=== PATIENT | female | born 1955 | race Caucasian/White ===

== ENCOUNTER → 2018-01-09 08:43 | Outpatient (CLI) | payer OTHER, MEDICAID, SELFPAY ==
[2018-01-09 10:06] LABS: Alanine Aminotransferase 20 IU/L (9-52); Albumin 4.2 g/dL (3.5-5.0); Albumin Globulin Ratio 1.4 (1.0-2.8); Alkaline Phosphatase 87 U/L (38-126); Aspartate Aminotransferase 18 IU/L (14-36); BUN Creatinine Ratio 23.3 (6-22); Bilirubin Total 0.5 mg/dL (0.2-1.3); Blood Urea Nitrogen 14 mg/dL (7-17); Calcium 9.4 mg/dL (8.4-10.2); Carbon Dioxide 32 mmol/L (22-32); Chloride 106 mmol/L (98-107); Cholesterol 236 mg/dL (140-199); Estimated Glomerular Filt Rate > 60.0 mL/min (>60); Globulin 3.1 g/dL (1.7-4.1); Glucose 106 mg/dL (80-110); HDL Cholesterol 56 mg/dL (40-60); HEMOLYSIS < 15 (0-50); LDL Cholesterol Calculated 157 mg/dL (<100); Phenytoin / Dilantin 8.6 ug/mL (10-20); Potassium 4.4 mmol/L (3.4-5.1); Sodium 144 mmol/L (137-145); Total Protein 7.3 g/dL (6.3-8.2); Triglycerides 114 mg/dL (35-150)
[2018-01-09 10:41] LABS: Hemoglobin 14.2 g/dL (12.0-16.0); Red Blood Cell Count 4.73 X10^6/uL (4.0-5.2); White Blood Cell Count 5.2 X10^3/uL (4.5-11.0)
[2018-01-09 10:42] LABS: Add Manual Diff / Slide Review NO; Basophils Percent Auto 0.9 % (0-2); Eosinophils Percent Auto 5.7 % (2-4); Hematocrit 41.9 % (36-46); Lymphocytes Percent Auto 28.3 % (25-40); Mean Corpuscular Hemoglobin 30.1 PG (26-34); Mean Corpuscular Volume 88.5 fL (80-100); Monocytes Percent Auto 8.5 % (3-14); Neutrophils Absolute Auto 3000 /uL (3000-5900); Neutrophils Percent Auto 56.6 % (50-75); Platelet Count 213 X10^3/uL (150-400); Red Cell Distribution Width 13.1 % (11.6-14.8)
[2018-01-09 12:41] LABS: Appearance Urine UA CLEAR; Bilirubin Urine UA NEGATIVE (NEGATIVE); Color Urine UA YELLOW; Glucose Urine UA NEGATIVE (Normal); Ketones Urine UA NEGATIVE (NEGATIVE); Leukocyte Esterase Urine UA NEGATIVE (NEGATIVE); Nitrite Urine UA Negative (Negative); Occult Blood Urine UA NEGATIVE (Negative); Protein Urine UA NEGATIVE (Negative); Urobilinogen Urine UA 0.2 E.U./dL (0.2); pH Urine UA 5.5 (4.5-8.0)
== END ==
PROVIDERS: PCP Family Medicine; Visit Provider Family Medicine
DX: I10 Essential (primary) hypertension (principal); E78.5 Hyperlipidemia, unspecified; R56.9 Unspecified convulsions; Z51.81 Encounter for therapeutic drug level monitoring; Z13.29 Encounter for screening for other suspected endocrine disorder
CPT/HCPCS: 36415; 80053; 80061; 80185; 81003; 84443; 85025

== ENCOUNTER 2018-04-02 10:58 | Emergency (ER) | payer OTHER, MEDICAID, SELFPAY ==
[2018-04-02 11:02] VITALS: BP 165/85; PULSE 85; RESP 16; O2SAT 95; BMI 33.0
--- NOTE | 2018-04-02 12:09 | ED.SKABFB ---
HPI - Skin/Abscess/Foreign Bdy General Chief complaint: Skin/Abscess/Foreign Body Stated complaint: BLOCKAGE IN THROAT, CAN'T EAT OR SWALLOW Time Seen by Provider: 04/02/18 12:01 Source: patient Mode of arrival: ambulatory Limitations: no limitations History of Present Illness HPI narrative: Patient is a 62-year-old female who presents something stuck in her esophagus. She is not sure what is it started happening yesterday. She says every time she eats or drinks it comes back up. She is able to swallow her own spit most times. She tried warm could go home and came up. This happened to her once before. She does not know specifically what may be stuck. She says that she was eating a little bit of stuffing and soup yesterday morning and was unable to eat or drink anything all day yesterday. It has not let up. states that she has episodes like this frequently. Related Data Home Medications Medication Instructions Recorded Confirmed citalopram 60 mg PO DAILY 04/02/18 04/02/18 lisinopril 20 mg PO DAILY 04/02/18 04/02/18 phenytoin sodium extended 100 mg PO TID 04/02/18 04/02/18 [Dilantin Extended] Previous Rx's Medication Instructions Recorded pneumoc 13-hermes conj-dip cr(PF) 0.5 ml IM X1 #1 ea 10/31/16 [Prevnar 13 (PF)] rosuvastatin 20 mg tablet 20 mg PO DAILY #30 tab 03/13/18 Allergies Allergy/AdvReac Type Severity Reaction Status Date / Time No Known Drug Allergies Allergy Verified 04/02/18 11:02 Review of Systems Review of Systems All systems reviewed & are unremarkable except as noted in HPI and below Constitutional Denies chills, Denies fever(s), Denies lethargy and Denies weakness ENT Ears, Nose, Mouth, and Throat: Reports as per HPI and Reports dysphagia Cardiovascular Denies chest pain, Denies irregular heart rhythm, Denies lightheadedness, Denies palpitations, Denies dyspnea, Denies dyspnea on exertion and Denies orthopnea Respiratory Denies cough, Denies dyspnea, Denies dyspnea on exertion and Denies wheezing Gastrointestinal Gastrointestinal: Reports dysphagia Musculoskeletal Denies back pain, Denies muscle weakness, Denies numbness and Denies tingling Integumentary/Breasts Denies pruritus, Denies erythema, Denies rash and Denies wounds Neurologic Denies numbness, Denies tingling and Denies weakness Endocrine Denies palpitations Allergic/Immunologic Denies wheezing [facility] Medical History Depression (Chronic 1998) GERD (gastroesophageal reflux disease) (Chronic) Hypertension (Chronic) Restless leg syndrome (Chronic) Seizure (Chronic 1979) Urinary incontinence (Chronic) Surgical History No history of previous surgery (Resolved) Family History Father Heart disease Essential hypertension Hyperlipidemia Mother No problems noted. Social History Smoking Status: Former smoker alcohol intake: current (minimal) Exam Initial Vital Signs Initial Vital Signs: Vital Signs Pulse Rate 85 04/02/18 11:02 Respiratory Rate 16 04/02/18 11:02 Blood Pressure 165/85 H 04/02/18 11:02 Pulse Oximetry 95 04/02/18 11:02 GENERAL: Alert well-appearing female, managing her own secretions HEENT: Head atraumatic,EOMI, pupils reactive, face symmetric, no respiratory distress CARDIOVASCULAR: Regular rate and rhythm without murmurs, rubs or gallops. RESPIRATORY: Breath sounds equal bilaterally, no wheezes rales or rhonchi. ABDOMEN: Soft, nontender. Normoactive bowel sounds all 4 quadrants. No guarding or rebound. : No CVA tenderness EXTREMITIES: Normal range of motion, no clubbing or edema. Neurovascularly intact NEUROLOGICAL: Alert and oriented x4.Normal gait and speech. SKIN: Warm, dry, no laceration, no petechiae, no rashes or lesions. Course Orders Ordered: ED Orders 04/02/18 14:32 Basic Metabolic Panel Stat Complete Blood Count AUTO DIFF Stat 04/02/18 14:58 XR chest 1V Stat Discontinued Medications Glucagon (Glucagen) 1 mg IV NOW ONE Stop: 04/02/18 12:05 Last Admin: 04/02/18 12:19 Dose: 1 mg Lorazepam (Ativan) 0.5 mg IV NOW ONE Stop: 04/02/18 13:36 Last Admin: 04/02/18 14:14 Dose: 0.5 mg Pantoprazole Sodium (Protonix) 40 mg IV NOW ONE Stop: 04/02/18 12:02 Last Admin: 04/02/18 12:19 Dose: 40 mg Vital Signs - 8 hr 04/02/18 11:02 04/02/18 14:15 04/02/18 15:44 Pulse Rate 85 79 90 Respiratory Rate 16 18 18 Blood Pressure 165/85 H Blood Pressure [Left Arm] 183/100 H 146/88 H Pulse Oximetry 95 100 94 MDM - Skin/Abscess/Foreign Bdy Lab Data Attestation: I reviewed the patient's lab results. Result diagrams: 04/02/18 14:32 04/02/18 14:32 Lab Results 04/02/18 04/02/18 Range/Units 14:32 14:32 WBC 10.8 (4.5-11.0) X10^3/uL RBC 4.90 (4.0-5.2) X10^6/uL Hgb 14.9 (12.0-16.0) g/dL Hct 43.2 (36-46) % MCV 88.1 (80-100) fL MCH 30.4 (26-34) PG MCHC 34.5 (30-36) % RDW 13.3 (11.6-14.8) % Plt Count 212 (150-400) X10^3/uL Neut % (Auto) 73.1 (50-75) % Lymph % (Auto) 16.3 L (25-40) % [place] % (Auto) 7.4 (3-14) % Eos % (Auto) 2.6 (2-4) % Baso % (Auto) 0.6 (0-2) % Neut # (Auto) 7900 H (1866-2052) /uL Sodium 146 H (137-145) mmol/L Potassium 3.9 (3.4-5.1) mmol/L Chloride 103 (98-107) mmol/L Carbon Dioxide 30 (22-32) mmol/L BUN 12 (7-17) mg/dL Creatinine 0.60 (0.52-1.04) mg/dL Estimated GFR > 60.0 (>60) mL/min BUN/Creatinine Ratio 20.0 (6-22) Glucose 82 (80-110) mg/dL Calcium 9.5 (8.4-10.2) mg/dL Imaging Data Chest x-ray: Radiologist's impression: PROCEDURE: XR CHEST 1V INDICATIONS: difficulty swallowing TECHNIQUE: One view of the chest was acquired. COMPARISON: None. FINDINGS: Surgical changes and devices: None. Lungs and pleura: No pleural effusions or pneumothorax. There is mild patchy opacity at the right and left lung bases. Mediastinum: Mediastinal contours appear normal. Heart size is normal. Bones and chest wall: No suspicious bony lesions. Overlying soft tissues appear unremarkable. IMPRESSION: Mild bibasilar pneumonia versus aspiration. Continued plain film surveillance is recommended to ensure resolution, and to exclude underlying or central malignancy. Dictated by: Anastasia John M.D. on 04/02/2018 at 15:15 MDM Narrative Medical decision making narrative: 1:00 p.m. I spoke with Dr. Preciado in regards to esophageal stricture versus esophageal bolus. He recommends GI 1:15 p.m. I spoke with Dr. Harini SILVA who states if patient cannot be seen as outpatient and will need to be admitted to the hospitalist service [facility] does not have any beds Will give Ativan see if that helps, calling [facility]. Patient seems to be managing her own secretions however when she drinks more than a quarter cup it seems to come 2:50 p.m. GI from [facility], she is happy to help patient 3:[address] Osullivan at [facility] ER happily accepts patient for transfer. X-ray shows bibasilar pneumonia however patient has no shortness of breath or productive cough no leukocytosis or fever. She does not have clinical signs or symptoms of pneumonia. Discharge Plan Departure Patient Disposition: [facility] Clinical Impression: Esophageal spasm Discharge Date/Time: 04/02/18 15:46 Interventions: ED Discharge Assessment Last Done: 04/02/18 15:45 Activity Restrictions/Additional Instructions: Go directly to [facility] they are expecting you Dr. Clark is the GI doctor Prescriptions: No Action pneumoc 13-hermes conj-dip cr(PF) [Prevnar 13 (PF)] 0.5 ML syringe 0.5 ml IM X1 Qty: 1 RF: 0 rosuvastatin [Crestor] 20 mg tablet 20 mg PO DAILY Qty: 30 RF: 2 citalopram 40 mg tablet 60 mg PO DAILY RF: 0 lisinopril 20 mg tablet 20 mg PO DAILY RF: 0 phenytoin sodium extended [Dilantin Extended] 100 mg capsule 100 mg PO TID RF: 0 Referrals: Mirian Mena DO [Primary Care Provider] -
[2018-04-02] MEDS: PANTOPRAZOLE 40 MG VIAL IV (12:19)
[2018-04-02] MEDS: GLUCAGON,HUMAN RECOMBINANT 1 MG/ML VIAL IV (12:19)
--- NOTE | 2018-04-02 12:21 | PC.NURSE ---
pt c/o throat pain, unable to swollen medications. started yesterday around 1600 after eating. has had similar episodes in the past with difficulty swollowing but has been able to clear on her own. unable to take her seizure medications.
[2018-04-02] MEDS: LORazepam 2 MG/ML SYRINGE 0.5 MG IV (14:14)
[2018-04-02 14:15] VITALS: BP 183/100; PULSE 79; RESP 18; O2SAT 100
[2018-04-02 14:48] LABS: Add Manual Diff / Slide Review NO; Basophils Percent Auto 0.6 % (0-2); Eosinophils Percent Auto 2.6 % (2-4); Hematocrit 43.2 % (36-46); Hemoglobin 14.9 g/dL (12.0-16.0); Lymphocytes Percent Auto 16.3 % (25-40); Mean Corpuscular HGB Conc 34.5 % (30-36); Mean Corpuscular Hemoglobin 30.4 PG (26-34); Mean Corpuscular Volume 88.1 fL (80-100); Monocytes Percent Auto 7.4 % (3-14); Neutrophils Absolute Auto 7900 /uL (3000-5900); Neutrophils Percent Auto 73.1 % (50-75); Platelet Count 212 X10^3/uL (150-400); Red Cell Distribution Width 13.3 % (11.6-14.8); White Blood Cell Count 10.8 X10^3/uL (4.5-11.0)
--- NOTE | 2018-04-02 14:58 | DI.RAD.S_ITS ---
PROCEDURE: XR CHEST 1V INDICATIONS: difficulty swallowing TECHNIQUE: One view of the chest was acquired. COMPARISON: None. FINDINGS: Surgical changes and devices: None. Lungs and pleura: No pleural effusions or pneumothorax. There is mild patchy opacity at the right and left lung bases. Mediastinum: Mediastinal contours appear normal. Heart size is normal. Bones and chest wall: No suspicious bony lesions. Overlying soft tissues appear unremarkable. IMPRESSION: Mild bibasilar pneumonia versus aspiration. Continued plain film surveillance is recommended to ensure resolution, and to exclude underlying or central malignancy. Dictated by: Anastasia John M.D. on 04/02/2018 at 15:15 Approved by: Anastasia John M.D. on 04/02/2018 at 15:17
[2018-04-02 15:00] LABS: Blood Urea Nitrogen 12 mg/dL (7-17); Calcium 9.5 mg/dL (8.4-10.2); Carbon Dioxide 30 mmol/L (22-32); Chloride 103 mmol/L (98-107); Estimated Glomerular Filt Rate > 60.0 mL/min (>60); Glucose 82 mg/dL (80-110); HEMOLYSIS < 15 (0-50); Potassium 3.9 mmol/L (3.4-5.1); Sodium 146 mmol/L (137-145)
[2018-04-02 15:44] VITALS: BP 146/88; PULSE 90; RESP 18; O2SAT 94
== END 2018-04-02 15:46 | disposition short-term general hospital (02) ==
PROVIDERS: Emergency Provider Emergency Medicine; PCP Family Medicine
DX: K22.4 Dyskinesia of esophagus (principal)
CPT/HCPCS: 36415; 71045; 80048; 85025; 96374; 96375; 99282; 99284; C9113; J1610; J2060

== ENCOUNTER → 2018-05-22 07:45 | Outpatient (CLI) | payer OTHER, MEDICAID, SELFPAY ==
[2018-05-22 09:46] LABS: Alanine Aminotransferase 27 IU/L (9-52); Albumin 4.5 g/dL (3.5-5.0); Albumin Globulin Ratio 1.4 (1.0-2.8); Alkaline Phosphatase 102 U/L (38-126); Aspartate Aminotransferase 19 IU/L (14-36); BUN Creatinine Ratio 14.3 (6-22); Bilirubin Total 0.6 mg/dL (0.2-1.3); Blood Urea Nitrogen 10 mg/dL (7-17); Calcium 9.7 mg/dL (8.4-10.2); Carbon Dioxide 31 mmol/L (22-32); Chloride 101 mmol/L (98-107); Cholesterol 175 mg/dL (140-199); Estimated Glomerular Filt Rate > 60.0 mL/min (>60); Globulin 3.3 g/dL (1.7-4.1); Glucose 111 mg/dL (80-110); HDL Cholesterol 61 mg/dL (40-60); HEMOLYSIS < 15 (0-50); LDL Cholesterol Calculated 91 mg/dL (<100); Potassium 4.7 mmol/L (3.4-5.1); Sodium 142 mmol/L (137-145); Total Protein 7.8 g/dL (6.3-8.2); Triglycerides 116 mg/dL (35-150)
== END ==
PROVIDERS: PCP Family Medicine; Visit Provider Family Medicine
DX: E78.5 Hyperlipidemia, unspecified (principal); I10 Essential (primary) hypertension
CPT/HCPCS: 36415; 80053; 80061

== ENCOUNTER → 2018-10-14 17:40 | Outpatient (CLI) | payer OTHER, MEDICAID, SELFPAY ==
--- NOTE | 2018-10-14 17:42 | DI.RAD.S_ITS ---
PROCEDURE: XR CHEST 2V INDICATIONS: wheezing TECHNIQUE: 2 views of the chest were acquired. COMPARISON: [facility], CR, XR CHEST 1V, 04/02/2018, 15:04. FINDINGS: Surgical changes and devices: None. Lungs and pleura: Lungs are clear. No pleural effusions or pneumothorax. Mediastinum: Mediastinal contours are normal. Heart size is normal. Bones and chest wall: No suspicious bony abnormalities. Soft tissues appear unremarkable. IMPRESSION: Normal for age, source of current wheezing symptoms is not seen. Dictated by: Jan Harris M.D. on 10/15/2018 at 11:32 Approved by: Jan Harris M.D. on 10/15/2018 at 11:32
== END ==
PROVIDERS: PCP Family Medicine; Visit Provider Family Medicine
DX: R06.2 Wheezing (principal)
CPT/HCPCS: 71046

== ENCOUNTER → 2018-10-15 07:37 | Outpatient (CLI) | payer OTHER, MEDICAID, SELFPAY ==
[2018-10-15 08:00] LABS: Add Manual Diff / Slide Review NO; Basophils Absolute Auto 100 /uL (0-100); Basophils Percent Auto 1.1 % (0-2); Eosinophils Absolute Auto 300 /uL (0-450); Eosinophils Percent Auto 5.2 % (2-4); Hematocrit 42.9 % (36-46); Hemoglobin 14.8 g/dL (12.0-16.0); Lymphocytes Absolute Auto 2000 /uL (1100-4500); Lymphocytes Percent Auto 32.2 % (25-40); Mean Corpuscular HGB Conc 34.7 % (30-36); Mean Corpuscular Hemoglobin 30.4 PG (26-34); Mean Corpuscular Volume 87.7 fL (80-100); Monocytes Absolute Auto 600 /uL (0-900); Monocytes Percent Auto 9.7 % (3-14); Neutrophils Absolute Auto 3300 /uL (1500-7000); Neutrophils Percent Auto 51.8 % (50-75); Platelet Count 206 X10^3/uL (150-400); Red Blood Cell Count 4.89 X10^6/uL (4.0-5.2); Red Cell Distribution Width 13.4 % (11.6-14.8); White Blood Cell Count 6.3 X10^3/uL (4.5-11.0)
[2018-10-15 08:13] LABS: Alanine Aminotransferase 13 IU/L (9-52); Albumin 4.3 g/dL (3.5-5.0); Albumin Globulin Ratio 1.3 (1.0-2.8); Alkaline Phosphatase 102 U/L (38-126); Aspartate Aminotransferase 17 IU/L (14-36); Bilirubin Total 0.5 mg/dL (0.2-1.3); Blood Urea Nitrogen 9 mg/dL (7-17); Calcium 9.7 mg/dL (8.4-10.2); Carbon Dioxide 33 mmol/L (22-32); Chloride 101 mmol/L (98-107); Cholesterol 151 mg/dL (140-199); Estimated Glomerular Filt Rate > 60.0 mL/min (>60); Globulin 3.4 g/dL (1.7-4.1); Glucose 111 mg/dL (80-110); HDL Cholesterol 54 mg/dL (40-60); HEMOLYSIS < 15 (0-50); LDL Cholesterol Calculated 77 mg/dL (<100); Phenytoin / Dilantin 8.5 ug/mL (10-20); Potassium 4.5 mmol/L (3.4-5.1); Sodium 141 mmol/L (137-145); Total Protein 7.7 g/dL (6.3-8.2); Triglycerides 100 mg/dL (35-150)
[2018-10-15 09:05] LABS: Appearance Urine UA CLEAR; Bilirubin Urine UA NEGATIVE (NEGATIVE); Color Urine UA YELLOW; Glucose Urine UA NEGATIVE (Negative); Ketones Urine UA NEGATIVE (NEGATIVE); Leukocyte Esterase Urine UA NEGATIVE (NEGATIVE); Nitrite Urine UA NEGATIVE (Negative); Occult Blood Urine UA NEGATIVE (Negative); Protein Urine UA NEGATIVE (Negative); Specific Gravity Urine UA 1.015 (1.000-1.035); Urobilinogen Urine UA 0.2 E.U./dL (0.2)
[2018-10-15 10:05] LABS: Thyroid Stimulating Hormone 1.77 uIU/mL (0.47-4.68)
== END ==
PROVIDERS: PCP Family Medicine; Visit Provider Family Medicine
DX: F32.9 Major depressive disorder, single episode, unspecified (principal); I10 Essential (primary) hypertension; R06.2 Wheezing; R13.10 Dysphagia, unspecified; E78.5 Hyperlipidemia, unspecified; G40.909 Epilepsy, unspecified, not intractable, without status epilepticus; Z71.6 Tobacco abuse counseling
CPT/HCPCS: 36415; 80053; 80061; 80185; 81003; 84443; 85025

== ENCOUNTER → 2019-10-07 09:06 | Outpatient (CLI) | payer MEDICARE, OTHER, SELFPAY ==
[2019-10-07 10:14] LABS: Add Manual Diff / Slide Review NO; Basophils Absolute Auto 100 /uL (0-100); Basophils Percent Auto 1.3 % (0-2); Eosinophils Absolute Auto 800 /uL (0-450); Hematocrit 42.5 % (36-46); Hemoglobin 14.8 g/dL (12.0-16.0); Lymphocytes Absolute Auto 1300 /uL (1100-4500); Lymphocytes Percent Auto 22.8 % (25-40); Mean Corpuscular HGB Conc 34.8 % (30-36); Mean Corpuscular Hemoglobin 30.9 PG (26-34); Mean Corpuscular Volume 88.7 fL (80-100); Monocytes Absolute Auto 400 /uL (0-900); Monocytes Percent Auto 7.5 % (3-14); Neutrophils Absolute Auto 3200 /uL (1500-7000); Neutrophils Percent Auto 55.4 % (50-75); Platelet Count 188 X10^3/uL (150-400); Red Cell Distribution Width 13.2 % (11.6-14.8); White Blood Cell Count 5.8 X10^3/uL (4.5-11.0)
[2019-10-07 10:47] LABS: Alanine Aminotransferase 11 IU/L (<35); Albumin 4.5 g/dL (3.5-5.0); Albumin Globulin Ratio 1.4 (1.0-2.8); Alkaline Phosphatase 99 U/L (38-126); Aspartate Aminotransferase 18 IU/L (14-36); BUN Creatinine Ratio 14.5 (6-22); Bilirubin Total 0.4 mg/dL (0.2-1.3); Blood Urea Nitrogen 9 mg/dL (7-17); Calcium 9.7 mg/dL (8.4-10.2); Carbon Dioxide 30 mmol/L (22-32); Chloride 104 mmol/L (98-107); Cholesterol 158 mg/dL (140-199); Estimated Glomerular Filt Rate > 60.0 mL/min (>60); Globulin 3.2 g/dL (1.7-4.1); Glucose 113 mg/dL (80-110); HDL Cholesterol 65 mg/dL (40-60); HEMOLYSIS < 15 (0-50); LDL Cholesterol Calculated 82 mg/dL (<100); Potassium 4.4 mmol/L (3.4-5.1); Sodium 141 mmol/L (137-145); Total Protein 7.7 g/dL (6.3-8.2); Triglycerides 57 mg/dL (35-150)
== END ==
PROVIDERS: Family Medicine; PCP Nurse Practitioner; Referring Provider Nurse Practitioner; Visit Provider Nurse Practitioner
DX: Z51.81 Encounter for therapeutic drug level monitoring (principal); E78.5 Hyperlipidemia, unspecified
CPT/HCPCS: 36415; 80053; 80061; 85025

== ENCOUNTER 2019-10-10 10:56 | Inpatient (IN) | payer MEDICARE, MEDICAID, SELFPAY ==
[2019-10-10] VITALS (17 sets, daily range): BP systolic 124–181; BP diastolic 64–85; PULSE 77–94; RESP 16–34; TEMP 36.8–37.1; O2SAT 81–97; BMI 30.2
--- NOTE | 2019-10-10 11:04 | DI.RAD.S_ITS ---
PROCEDURE: XR CHEST 1V INDICATIONS: Shortness of breath TECHNIQUE: One view of the chest was acquired. COMPARISON: [facility], CR, XR CHEST 2V, 10/14/2018, 17:44. FINDINGS: Surgical changes and devices: None. Lungs and pleura: Slight blunting of the right costophrenic angle is identified which is similar to the prior study and may represent mild scarring versus trace effusion. No new areas of pulmonary consolidation are evident. No pneumothorax is appreciated. Mediastinum: Mediastinal contours appear normal. Heart size is normal. Bones and chest wall: No suspicious bony lesions. Overlying soft tissues appear unremarkable. IMPRESSION: No acute cardiopulmonary process is evident. Dictated by: Jack Conley M.D. on 10/10/2019 at 11:38 Approved by: Jack Conley M.D. on 10/10/2019 at 11:39
[2019-10-10] MEDS: ALBUTEROL/IPRATROPIUM 3 ML AMPUL INH (11:24)
--- NOTE | 2019-10-10 11:36 | ED.SOB ---
HPI - SOB/Dyspnea <SALEEM Clarke - Last Filed: 10/10/19 13:39> General Chief Complaint: Shortness of Breath/Dyspnea Stated Complaint: shortness of breath Time Seen by Provider: 10/10/19 11:04 Source: patient Mode of arrival: Family Vehicle Limitations: no limitations History of Present Illness HPI Narrative: The patient is a 64-year-old female former smoker hypertension, high cholesterol who presents with a chief complaint of risks of shortness of breath for the past 4 months. She presented to her PCPs office this morning for a med check, was found to be hypoxic and was sent to the emergency department. She states she is becoming increasingly wheezy over the past months to weeks, that she has a referral in to a set making machine operator for possible COPD but was not able to go as she was having teeth pulled and related to coronavirus. She denies any chest pain she denies any fever abdominal pain nausea vomiting or diarrhea. She states that she has a productive cough, with green phlegm. She states she has been very wheezy as an albuterol inhaler at home and has been using it more frequently. She also has a history of depression and seizures, on Dilantin. Related Data Previous Rx's Medication Instructions Recorded rosuvastatin 20 mg tablet 20 mg PO DAILY #30 tab 04/21/19 lisinopril 20 mg tablet 20 mg PO DAILY #90 tab 07/01/19 citalopram 40 mg tablet 80 mg PO DAILY #180 tab 08/20/19 albuterol sulfate 90 mcg/actuation 2 puff INHALATION Q6H PRN #6.7 gram 10/02/19 aerosol inhaler phenytoin sodium extended 100 mg 100 mg PO TID #270 cap 10/06/19 capsule Allergies Allergy/AdvReac Type Severity Reaction Status Date / Time No Known Drug Allergies Allergy Verified 10/10/19 11:05 Review of Systems <SALEEM Clarke - Last Filed: 10/10/19 13:39> Review of Systems Narrative: GENERAL: Denies chills, fatigue, malaise, fever, sweats. HEENT: Denies sinus pain, ear pain, sore throat, difficulty swallowing, dizziness. RESPIRATORY: See HPI CARDIOVASCULAR: Denies chest pain, palpitations, orthopnea, edema, GASTROINTESTINAL: Denies nausea, vomiting, abdominal pain, diarrhea, constipation, melena. : Denies dysuria, frequency, incontinence, hematuria, urinary retention. MUSCULOSKELETAL: denies weakness, joint pain, or bony pain SKIN: Denies rash, skin lesions, or other NEUROLOGIC: Denies weakness, headache, numbness, change in speech, confusion, seizures, incoordination. PSYCHIATRIC: No concerning psychosocial issues. 12 point review of systems is negative except for those stated above Patient History <STEVEN Clarke - Last Filed: 10/10/19 13:39> Medical History (Updated 06/10/19 @ 09:28 by CHARLIE Whelan) Depression (Chronic 1998) GERD (gastroesophageal reflux disease) (Chronic) Hypertension (Chronic) Restless leg syndrome (Chronic) Seizure (Chronic 1979) Urinary incontinence (Chronic) Surgical History No history of previous surgery (Resolved) Family History Father Heart disease Essential hypertension Hyperlipidemia Mother No problems noted. Social History Smoking Status: Former smoker alcohol intake: current Smoking Status: Former smoker alcohol intake frequency: 0-2 drinks per day Substance Use Type: does not use Exam [facility] - Last Filed: 10/10/19 13:39> Narrative Exam Narrative: GENERAL: Elderly female, appears to have increased respiratory effort HEAD: Atraumatic. Normocephalic. No temporal or scalp tenderness. EYES: Pupils equal round and reactive. Extraocular motions intact. No scleral icterus. No injection or drainage. ENT: Nose without bleeding, purulent drainage or septal hematoma. Throat without erythema, tonsillar hypertrophy or exudate. Uvula midline. Airway patent. NECK: Trachea midline. No JVD or lymphadenopathy. Supple, nontender, no meningeal signs. CARDIOVASCULAR: Regular rate and rhythm RESPIRATORY: Inspiratory and expiratory wheezes bilaterally to auscultation. Speaking 3-4 word sentences. Purse lipped breathing noted. Loose, wet sounding cough throughout exam GASTROINTESTINAL: Abdomen soft, non-tender, nondistended. No hepato-splenomegaly, or palpable masses. No guarding. EXTREMITIES: No clubbing, cyanosis, or edema. No joint tenderness, effusion, or edema noted. BACK: Nontender without deformity or crepitance. No flank tenderness. NEURO: AOx3. SKIN: No rash or erythema on visible skin Initial Vital Signs Initial Vital Signs: Vital Signs Temperature 98.6 F 10/10/19 10:56 Pulse Rate 92 H 10/10/19 10:56 Respiratory Rate 34 H 10/10/19 10:56 Blood Pressure 181/85 H 10/10/19 10:56 Pulse Oximetry 81 L 10/10/19 10:56 <Uvaldo Sanchez DO - Last Filed: 10/10/19 13:41> Initial Vital Signs Initial Vital Signs: Vital Signs Temperature 98.6 F 10/10/19 10:56 Pulse Rate 92 H 10/10/19 10:56 Respiratory Rate 34 H 10/10/19 10:56 Blood Pressure 181/85 H 10/10/19 10:56 Pulse Oximetry 81 L 10/10/19 10:56 Course <STEVEN ClarkeBC - Last Filed: 10/10/19 13:39> Orders Ordered: ED Orders 10/10/19 11:04 XR chest 1V Stat EKG-12 Lead Stat 10/10/19 11:10 Complete Blood Count AUTO DIFF Stat Comprehensive Metabolic Panel Stat Lipase Stat Magnesium Stat NT-proBNP (BNP-Adult 18+) Stat Partial Thromboplastin Time Stat Procalcitonin Stat Prothrombin Time INR Stat Troponin I Stat 10/10/19 11:29 Consult to Respiratory Therapy Evaluate & Treat Albuterol (Ventolin Hfa (Vent/Covid R/O)) 2 puff INH Q6H PRN PRN Reason: shortness of breath or wheezing Citalopram Hydrobromide (Celexa) 80 mg PO DAILY [facility] Enoxaparin Sodium (Lovenox) 40 mg SUBCUT DAILY [facility] Sodium Chloride (Normal Saline 0.9%) 1,000 mls @ 100 mls/hr IV CONT ANTHONY Stop: 10/11/19 00:00 Lisinopril (Zestril) 20 mg PO DAILY [facility] Methylprednisolone (Solu-Medrol 125 Mg Vial) 60 mg IV Q8H [facility] Naloxone HCl (Narcan) 0.2 mg IV Q2MIN PRN PRN Reason: Opiate Reversal Phenytoin Sodium (Dilantin Er) 100 mg PO TID [facility] Rosuvastatin Calcium (Crestor) 20 mg PO DAILY [facility] Discontinued Medications Albuterol (Ventolin Hfa) 4 puff INH NOW ONE Stop: 10/10/19 11:49 Last Admin: 10/10/19 11:52 Dose: 4 puff Documented by: HERMINIA Azithromycin 500 mg/ Dextrose 250 mls @ 250 mls/hr IV NOW ONE Stop: 10/10/19 13:12 Last Admin: 10/10/19 13:28 Dose: 250 mls/hr Documented by: ALONA Methylprednisolone (Solu-Medrol 125 Mg Vial) 125 mg IV NOW ONE Stop: 10/10/19 11:30 Last Admin: 10/10/19 11:45 Dose: 125 mg Documented by: ALONA Vital Signs Vital signs: Vital Signs - 8 hr 10/10/19 10:56 10/10/19 11:25 10/10/19 11:31 Temperature 98.6 F Pulse Rate 92 H 82 Respiratory Rate 34 H 23 Blood Pressure 181/85 H Blood Pressure [Left Arm] 131/80 Pulse Oximetry 81 L 92 94 10/10/19 11:50 10/10/19 12:25 10/10/19 12:28 Temperature Pulse Rate 81 Respiratory Rate 25 H Blood Pressure Blood Pressure [Left Arm] 140/64 Pulse Oximetry 93 95 93 <Uvaldo Sanchez, - Last Filed: 10/10/19 13:41> Orders Ordered: ED Orders 10/10/19 11:04 XR chest 1V Stat EKG-12 Lead Stat 10/10/19 11:10 Complete Blood Count AUTO DIFF Stat Comprehensive Metabolic Panel Stat Lipase Stat Magnesium Stat NT-proBNP (BNP-Adult 18+) Stat Partial Thromboplastin Time Stat Procalcitonin Stat Prothrombin Time INR Stat Troponin I Stat 10/10/19 11:29 Consult to Respiratory Therapy Evaluate & Treat Albuterol (Ventolin Hfa (Vent/Covid R/O)) 2 puff INH Q6H PRN PRN Reason: shortness of breath or wheezing Citalopram Hydrobromide (Celexa) 80 mg PO DAILY [facility] Enoxaparin Sodium (Lovenox) 40 mg SUBCUT DAILY [facility] Sodium Chloride (Normal Saline 0.9%) 1,000 mls @ 100 mls/hr IV CONT ANTHONY Stop: 10/11/19 00:00 Lisinopril (Zestril) 20 mg PO DAILY [facility] Methylprednisolone (Solu-Medrol 125 Mg Vial) 60 mg IV Q8H [facility] Naloxone HCl (Narcan) 0.2 mg IV Q2MIN PRN PRN Reason: Opiate Reversal Phenytoin Sodium (Dilantin Er) 100 mg PO TID [facility] Rosuvastatin Calcium (Crestor) 20 mg PO DAILY [facility] Discontinued Medications Albuterol (Ventolin Hfa) 4 puff INH NOW ONE Stop: 10/10/19 11:49 Last Admin: 10/10/19 11:52 Dose: 4 puff Documented by: HERMINIA Azithromycin 500 mg/ Dextrose 250 mls @ 250 mls/hr IV NOW ONE Stop: 10/10/19 13:12 Last Admin: 10/10/19 13:28 Dose: 250 mls/hr Documented by: ALONA Methylprednisolone (Solu-Medrol 125 Mg Vial) 125 mg IV NOW ONE Stop: 10/10/19 11:30 Last Admin: 10/10/19 11:45 Dose: 125 mg Documented by: ALONA Vital Signs Vital signs: Vital Signs - 8 hr 10/10/19 10:56 10/10/19 11:25 10/10/19 11:31 Temperature 98.6 F Pulse Rate 92 H 82 Respiratory Rate 34 H 23 Blood Pressure 181/85 H Blood Pressure [Left Arm] 131/80 Pulse Oximetry 81 L 92 94 10/10/19 11:50 10/10/19 12:25 10/10/19 12:28 Temperature Pulse Rate 81 Respiratory Rate 25 H Blood Pressure Blood Pressure [Left Arm] 140/64 Pulse Oximetry 93 95 93 MDM - SOB/Dyspnea <SALEEM Clarke - Last Filed: 10/10/19 13:39> Lab Data Result diagrams: 10/10/19 11:10 10/10/19 11:10 Labs: Lab Results 10/10/19 10/10/19 10/10/19 Range/Units 11:10 11:10 11:10 WBC 5.5 (4.5-11.0) X10^3/uL RBC 4.86 (4.0-5.2) X10^6/uL Hgb 14.8 (12.0-16.0) g/dL Hct 43.0 (36-46) % MCV 88.7 (80-100) fL MCH 30.5 (26-34) PG MCHC 34.4 (30-36) % RDW 13.2 (11.6-14.8) % Plt Count 194 (150-400) X10^3/uL Neut % (Auto) 51.6 (50-75) % Lymph % (Auto) 26.1 (25-40) % [place] % (Auto) 8.0 (3-14) % Eos % (Auto) 13.3 H (2-4) % Baso % (Auto) 1.0 (0-2) % Neut # (Auto) 2900 (1157-5280) /uL Lymph # (Auto) 1400 (5129-5907) /uL [place] # (Auto) 400 (0-900) /uL Eos # (Auto) 700 H (0-450) /uL Baso # (Auto) 100 (0-100) /uL PT 11.7 (10.1-12.7) SECONDS INR 1.0 (0.9-1.3) APTT 27 (26.4-36.2) SECONDS Sodium 140 (137-145) mmol/L Potassium 3.9 (3.4-5.1) mmol/L Chloride 104 (98-107) mmol/L Carbon Dioxide 30 (22-32) mmol/L BUN 8 (7-17) mg/dL Creatinine 0.56 (0.52-1.04) mg/dL Estimated GFR > 60.0 (>60) mL/min BUN/Creatinine Ratio 14.3 (6-22) Glucose 107 (80-110) mg/dL Calcium 9.8 (8.4-10.2) mg/dL Magnesium (1.6-2.3) mg/dL Total Bilirubin 0.6 (0.2-1.3) mg/dL AST 21 (14-36) IU/L ALT 13 (<35) IU/L Alkaline Phosphatase 98 (38-126) U/L Troponin I < 0.012 (0.01-0.034) ng/mL NT-Pro-B Natriuret Pep 36 (<125) pg/mL Total Protein 8.2 (6.3-8.2) g/dL Albumin 4.6 (3.5-5.0) g/dL Globulin 3.6 (1.7-4.1) g/dL Albumin/Globulin Ratio 1.3 (1.0-2.8) Lipase 108 (23-300) U/L Procalcitonin (<0.5) ng/mL 10/10/19 10/10/19 Range/Units 11:10 11:10 WBC (4.5-11.0) X10^3/uL RBC (4.0-5.2) X10^6/uL Hgb (12.0-16.0) g/dL Hct (36-46) % MCV (80-100) fL MCH (26-34) PG MCHC (30-36) % RDW (11.6-14.8) % Plt Count (150-400) X10^3/uL Neut % (Auto) (50-75) % Lymph % (Auto) (25-40) % [place] % (Auto) (3-14) % Eos % (Auto) (2-4) % Baso % (Auto) (0-2) % Neut # (Auto) (8278-5789) /uL Lymph # (Auto) (8277-6451) /uL [facility] # (Auto) (0-900) /uL Eos # (Auto) (0-450) /uL Baso # (Auto) (0-100) /uL PT (10.1-12.7) SECONDS INR (0.9-1.3) APTT (26.4-36.2) SECONDS Sodium (137-145) mmol/L Potassium (3.4-5.1) mmol/L Chloride (98-107) mmol/L Carbon Dioxide (22-32) mmol/L BUN (7-17) mg/dL Creatinine (0.52-1.04) mg/dL Estimated GFR (>60) mL/min BUN/Creatinine Ratio (6-22) Glucose (80-110) mg/dL Calcium (8.4-10.2) mg/dL Magnesium 2.0 (1.6-2.3) mg/dL Total Bilirubin (0.2-1.3) mg/dL AST (14-36) IU/L ALT (<35) IU/L Alkaline Phosphatase (38-126) U/L Troponin I (0.01-0.034) ng/mL NT-Pro-B Natriuret Pep (<125) pg/mL Total Protein (6.3-8.2) g/dL Albumin (3.5-5.0) g/dL Globulin (1.7-4.1) g/dL Albumin/Globulin Ratio (1.0-2.8) Lipase (23-300) U/L Procalcitonin < 0.05 (<0.5) ng/mL Imaging Data Chest x-ray: Radiologist's Impression: [facility] [place] [id number] XRay Report Signed Patient: Jackie Lopez JMR#: [id number] : 5Acct:[id number] Age/Sex: 64 / FDate of Service: 10/10/19 Loc: ED Accession Number: [id number] Procedure: XR chest 1V Ordering Provider: Uvaldo Sanchez D.O. PROCEDURE: XR CHEST 1V INDICATIONS: Shortness of breath TECHNIQUE: One view of the chest was acquired. COMPARISON: [facility], , XR CHEST 2V, 10/14/2018, 17:44. FINDINGS: Surgical changes and devices: None. Lungs and pleura: Slight blunting of the right costophrenic angle is identified which is similar to the prior study and may represent mild scarring versus trace effusion. No new areas of pulmonary consolidation are evident. No pneumothorax is appreciated. Mediastinum: Mediastinal contours appear normal. Heart size is normal. Bones and chest wall: No suspicious bony lesions. Overlying soft tissues appear unremarkable. IMPRESSION: No acute cardiopulmonary process is evident. Dictated by: Jack Conley M.D. on 10/10/2019 at 11:38 Approved by: Jack Conley M.D. on 10/10/2019 at 11:39 ECG Data Attestation: I personally reviewed and interpreted this ECG as follows: Interpretation: Sinus rhythm. Ventricular 81. P.r. interval 180. QRS 85. No ectopy noted. No ST elevation or depression MDM Narrative Medical decision making narrative: The patient is a 64-year-old female who presents hypoxic at 81% on room air. She has had increased wheezing and sputum over the past several weeks to months. Given her presentation and hypoxia, IV labs, chest x-ray EKG were done. EKG was normal, and troponin was negative helping rule out an acute coronary event. Coronavirus testing was done given the patient's shortness of breath and productive cough. She was given IV steroids as well as nebulizers and felt much improved. It is possible that the patient has undiagnosed COPD, is experiencing exacerbation. I gave her azithromycin given her increase in sputum production as well as green sputum. I spoke with Dr Gamez who kindly accepted the patient for inpatient admission given her hypoxia and oxygen requirements as well as her wheezing. Patient is in accordance with admission as she is concerned that if she goes home, she will get worse. <Uvaldo Sanchez, DO - Last Filed: 10/10/19 13:41> Lab Data Labs: Lab Results 10/10/19 10/10/19 10/10/19 Range/Units 11:10 11:10 11:10 WBC 5.5 (4.5-11.0) X10^3/uL RBC 4.86 (4.0-5.2) X10^6/uL Hgb 14.8 (12.0-16.0) g/dL Hct 43.0 (36-46) % MCV 88.7 (80-100) fL MCH 30.5 (26-34) PG MCHC 34.4 (30-36) % RDW 13.2 (11.6-14.8) % Plt Count 194 (150-400) X10^3/uL Neut % (Auto) 51.6 (50-75) % Lymph % (Auto) 26.1 (25-40) % [place] % (Auto) 8.0 (3-14) % Eos % (Auto) 13.3 H (2-4) % Baso % (Auto) 1.0 (0-2) % Neut # (Auto) 2900 (9302-9045) /uL Lymph # (Auto) 1400 (2043-3393) /uL [facility] # (Auto) 400 (0-900) /uL Eos # (Auto) 700 H (0-450) /uL Baso # (Auto) 100 (0-100) /uL PT 11.7 (10.1-12.7) SECONDS INR 1.0 (0.9-1.3) APTT 27 (26.4-36.2) SECONDS Sodium 140 (137-145) mmol/L Potassium 3.9 (3.4-5.1) mmol/L Chloride 104 (98-107) mmol/L Carbon Dioxide 30 (22-32) mmol/L BUN 8 (7-17) mg/dL Creatinine 0.56 (0.52-1.04) mg/dL Estimated GFR > 60.0 (>60) mL/min BUN/Creatinine Ratio 14.3 (6-22) Glucose 107 (80-110) mg/dL Calcium 9.8 (8.4-10.2) mg/dL Magnesium (1.6-2.3) mg/dL Total Bilirubin 0.6 (0.2-1.3) mg/dL AST 21 (14-36) IU/L ALT 13 (<35) IU/L Alkaline Phosphatase 98 (38-126) U/L Troponin I < 0.012 (0.01-0.034) ng/mL NT-Pro-B Natriuret Pep 36 (<125) pg/mL Total Protein 8.2 (6.3-8.2) g/dL Albumin 4.6 (3.5-5.0) g/dL Globulin 3.6 (1.7-4.1) g/dL Albumin/Globulin Ratio 1.3 (1.0-2.8) Lipase 108 (23-300) U/L Procalcitonin (<0.5) ng/mL 10/10/19 10/10/19 Range/Units 11:10 11:10 WBC (4.5-11.0) X10^3/uL RBC (4.0-5.2) X10^6/uL Hgb (12.0-16.0) g/dL Hct (36-46) % MCV (80-100) fL MCH (26-34) PG MCHC (30-36) % RDW (11.6-14.8) % Plt Count (150-400) X10^3/uL Neut % (Auto) (50-75) % Lymph % (Auto) (25-40) % [place] % (Auto) (3-14) % Eos % (Auto) (2-4) % Baso % (Auto) (0-2) % Neut # (Auto) (4339-6758) /uL Lymph # (Auto) (5685-0903) /uL [facility] # (Auto) (0-900) /uL Eos # (Auto) (0-450) /uL Baso # (Auto) (0-100) /uL PT (10.1-12.7) SECONDS INR (0.9-1.3) APTT (26.4-36.2) SECONDS Sodium (137-145) mmol/L Potassium (3.4-5.1) mmol/L Chloride (98-107) mmol/L Carbon Dioxide (22-32) mmol/L BUN (7-17) mg/dL Creatinine (0.52-1.04) mg/dL Estimated GFR (>60) mL/min BUN/Creatinine Ratio (6-22) Glucose (80-110) mg/dL Calcium (8.4-10.2) mg/dL Magnesium 2.0 (1.6-2.3) mg/dL Total Bilirubin (0.2-1.3) mg/dL AST (14-36) IU/L ALT (<35) IU/L Alkaline Phosphatase (38-126) U/L Troponin I (0.01-0.034) ng/mL NT-Pro-B Natriuret Pep (<125) pg/mL Total Protein (6.3-8.2) g/dL Albumin (3.5-5.0) g/dL Globulin (1.7-4.1) g/dL Albumin/Globulin Ratio (1.0-2.8) Lipase (23-300) U/L Procalcitonin < 0.05 (<0.5) ng/mL Discharge Plan Departure Admit Date/Time: 10/10/19 13:27 Admit Provider: Roseann Gamez <Uvaldo Sanchez DO - Last Filed: 10/10/19 13:41> Cosign ED Attending Cosignature Attestation: Dr Sanchez Co-Sign Statement: I was available for consultation during this patient's emergency department visit. This chart is signed by myself for administrative purposes only. I did not have direct contact with this patient during this visit. They were seen independently by the APC.
[2019-10-10 11:37] LABS: Add Manual Diff / Slide Review NO; Basophils Absolute Auto 100 /uL (0-100); Eosinophils Absolute Auto 700 /uL (0-450); Eosinophils Percent Auto 13.3 % (2-4); Hemoglobin 14.8 g/dL (12.0-16.0); Lymphocytes Absolute Auto 1400 /uL (1100-4500); Lymphocytes Percent Auto 26.1 % (25-40); Mean Corpuscular HGB Conc 34.4 % (30-36); Mean Corpuscular Hemoglobin 30.5 PG (26-34); Mean Corpuscular Volume 88.7 fL (80-100); Monocytes Absolute Auto 400 /uL (0-900); Neutrophils Absolute Auto 2900 /uL (1500-7000); Neutrophils Percent Auto 51.6 % (50-75); Platelet Count 194 X10^3/uL (150-400); Red Blood Cell Count 4.86 X10^6/uL (4.0-5.2); Red Cell Distribution Width 13.2 % (11.6-14.8); White Blood Cell Count 5.5 X10^3/uL (4.5-11.0)
[2019-10-10 11:44] LABS: Prothrombin Time 11.7 SECONDS (10.1-12.7)
[2019-10-10] MEDS: methylPREDNISolone 125 MG/2 ML VIAL IV (11:45)
[2019-10-10 11:47] LABS: PTT Partial Thromboplastin Tim 27 SECONDS (26.4-36.2)
[2019-10-10 11:50] LABS: Alanine Aminotransferase 13 IU/L (<35); Albumin 4.6 g/dL (3.5-5.0); Albumin Globulin Ratio 1.3 (1.0-2.8); Alkaline Phosphatase 98 U/L (38-126); Aspartate Aminotransferase 21 IU/L (14-36); BUN Creatinine Ratio 14.3 (6-22); Bilirubin Total 0.6 mg/dL (0.2-1.3); Blood Urea Nitrogen 8 mg/dL (7-17); Calcium 9.8 mg/dL (8.4-10.2); Carbon Dioxide 30 mmol/L (22-32); Chloride 104 mmol/L (98-107); Estimated Glomerular Filt Rate > 60.0 mL/min (>60); Globulin 3.6 g/dL (1.7-4.1); Glucose 107 mg/dL (80-110); HEMOLYSIS < 15 (0-50); Lipase 108 U/L (23-300); Potassium 3.9 mmol/L (3.4-5.1); Sodium 140 mmol/L (137-145); Total Protein 8.2 g/dL (6.3-8.2)
[2019-10-10] MEDS: ALBUTEROL HFA 60 PUFF/8 GM INH INH (11:52)
[2019-10-10 12:02] LABS: NT-proBNP (BNP-Adult 18+) 36 pg/mL (<125); Troponin I < 0.012 ng/mL (0.01-0.034)
[2019-10-10 12:06] LABS: Procalcitonin < 0.05 ng/mL (<0.5)
[2019-10-10] MEDS: AZITHROMYCIN 500 MG in DEXTROSE 5% IN WATER 250 ML IV (13:28)
--- NOTE | 2019-10-10 13:37 | PM.HP.1 ---
History of Present Illness History of Present Illness Date Patient Seen: 10/10/19 Time Patient Seen: 13:37 Chief complaint: shortness of breath Narrative: This is a 64 year old female with acute respiratory failure and a COPD exacerbation. She describes 4 months of worsening shortness of breath and wheezing with a recent referral to pulmonology from her primary care office. She finally stopped smoking last month. She presents now with severe dyspnea and cough productive of green sputum. She has had no fevers or chest pain. Her O2 saturation was in the 80s on room air at her primary care physician's office follow-up today. She was referred to the emergency department where her initial oxygen saturation was 81% on room air. She was tripodding to breathe. With Solu-Medrol, albuterol and oxygen she improved quite readily and by the time I see her is no longer in respiratory distress. She is needing 3 L of nasal cannula oxygen to maintain sats at 93%. Her chest x-ray and procalcitonin are normal. A covid test is pending but she has been quarantining herself, avoiding exposures and has no known exposures to covid. She does have a history of seizures treated with Dilantin and a history of depression treated with very high dose citalopram. She has never been admitted for COPD or respiratory distress before. She seems quite frightened by the process of worsening breathing. Her smoking history is quite extensive. Patient History Medical History COPD (chronic obstructive pulmonary disease) (Acute) Depression (Chronic 1998) GERD (gastroesophageal reflux disease) (Chronic) Hypertension (Chronic) Restless leg syndrome (Chronic) Seizure (Chronic 1979) Urinary incontinence (Chronic) Surgical History No history of previous surgery (Resolved) Family & Social History Family History (Updated 10/10/19 @ 15:40 by Roseann Gamez MD) Father Heart disease Essential hypertension Hyperlipidemia Mother Alzheimer disease Social History: Her backup decision maker is her Nba Lopez. Her PCP is Dr. Aminata Santos. Safety & Behavioral: Feels Safe in Current Yes Environment Been Physically Hurt or No Threatened By a Person Tobacco & Substance use: Smoking Status Former smoker alcohol intake current alcohol intake frequency 0-2 drinks per day Substance Use Type does not use Meds Home Medications and Allergies Home Medications Medication Instructions Recorded Confirmed Type rosuvastatin 20 mg tablet 20 mg PO DAILY #30 tab 04/21/19 10/10/19 Rx lisinopril 20 mg tablet 20 mg PO DAILY #90 tab 07/01/19 10/10/19 Rx citalopram 40 mg tablet 80 mg PO DAILY #180 tab 08/20/19 10/10/19 Rx albuterol sulfate 90 mcg/actuation 2 puff INHALATION Q6H PRN #6.7 gram 10/02/19 10/10/19 Rx aerosol inhaler phenytoin sodium extended 100 mg 100 mg PO TID #270 cap 10/06/19 10/10/19 Rx capsule Allergies Allergy/AdvReac Type Severity Reaction Status Date / Time No Known Drug Allergies Allergy Verified 10/10/19 11:05 Review of Systems Review of Systems Narrative: Positive for Shortness of Breath and Wheezing. Positive for cough with green sputum. Negative for seizures, chest pain, N/V, abdominal pain, headaches, rashes, sore throat, difficulty talking, hematuria, bleeding, depression, joint pain ROS: Yes All systems reviewed with the patient and are negative except as otherwise documented Exam Vital Signs (past 8 hours): - 10/10/19 10:56 10/10/19 11:25 10/10/19 11:31 Temperature 98.6 F Pulse Rate 92 H 82 Respiratory Rate 34 H 23 Blood Pressure 181/85 H Blood Pressure [Left Arm] 131/80 Pulse Oximetry 81 L 92 94 10/10/19 11:50 10/10/19 12:25 10/10/19 12:28 Temperature Pulse Rate 81 Respiratory Rate 25 H Blood Pressure Blood Pressure [Left Arm] 140/64 Pulse Oximetry 93 95 93 Oxygen Delivery Method Nasal Cannula Oxygen Flow Rate 2 Narrative Exam Narrative: Alert and Oriented X 3. No apparent distress. Pupils are equally round and reactive to light and accommodation Extraocular muscles are intact No lymph nodes are felt head, neck, supraclavicular area Sclerae are pink and nonicteric Throat looks normal There is no thyromegaly No carotid bruits are heard JVD is less than 6 cm Heart is regular rate and rhythm without murmur. Lungs have wheezes bilaterally no crackles heard. Abdomen is soft, bowel sounds positive, nontender, no organomegaly. Breast, pelvic, rectal exams are not done today. Extremities have no ankle edema Neuro exam Cranial nerves 2-12 test intact There is no tremor Motor function is 5/5 throughout Sensation is intact Gait and balance are not tested Skin has no rash or jaundice. Objective ECG Impression: NSR with lung disease pattern Imaging Chest x-ray: My impression: Hyperexpanded lungs without lung lesions or cardiomyopathy Labs Result Diagrams: 10/10/19 11:10 10/10/19 11:10 Labs: Laboratory Results - last 24 hr 10/10/19 10/10/19 10/10/19 11:10 11:10 11:10 WBC 5.5 RBC 4.86 Hgb 14.8 Hct 43.0 MCV 88.7 MCH 30.5 MCHC 34.4 RDW 13.2 Plt Count 194 Neut % (Auto) 51.6 Lymph % (Auto) 26.1 [place] % (Auto) 8.0 Eos % (Auto) 13.3 H Baso % (Auto) 1.0 Neut # (Auto) 2900 Lymph # (Auto) 1400 [place] # (Auto) 400 Eos # (Auto) 700 H Baso # (Auto) 100 PT 11.7 INR 1.0 APTT 27 Sodium 140 Potassium 3.9 Chloride 104 Carbon Dioxide 30 BUN 8 Creatinine 0.56 Estimated GFR > 60.0 BUN/Creatinine Ratio 14.3 Glucose 107 Calcium 9.8 Magnesium Total Bilirubin 0.6 AST 21 ALT 13 Alkaline Phosphatase 98 Troponin I < 0.012 NT-Pro-B Natriuret Pep 36 Total Protein 8.2 Albumin 4.6 Globulin 3.6 Albumin/Globulin Ratio 1.3 Lipase 108 Procalcitonin 10/10/19 10/10/19 11:10 11:10 WBC RBC Hgb Hct MCV MCH MCHC RDW Plt Count Neut % (Auto) Lymph % (Auto) [place] % (Auto) Eos % (Auto) Baso % (Auto) Neut # (Auto) Lymph # (Auto) [place] # (Auto) Eos # (Auto) Baso # (Auto) PT INR APTT Sodium Potassium Chloride Carbon Dioxide BUN Creatinine Estimated GFR BUN/Creatinine Ratio Glucose Calcium Magnesium 2.0 Total Bilirubin AST ALT Alkaline Phosphatase Troponin I NT-Pro-B Natriuret Pep Total Protein Albumin Globulin Albumin/Globulin Ratio Lipase Procalcitonin < 0.05 Assessment & Plan Assessment & Plan narrative: Acute Hypoxic Respiratory Failure, present on admission, acute -CXR negative, Procalcitonin normal and WBC 6.5 -Treat COPD with Oxygen, Albuterol and Solumedrol -COVID test pending, no known exposures and symptoms/CXR are more typical of COPD COPD Exacerbation, present on admission, acute -IV Solumedrol, Nebulized Albuterol and Oxygen to maintain sat above 90% Major Depression, present on admission, chronic -Continue high dose Citalopram which she seems to tolerate quite well. Seizure Disorder, present on admission, chronic -Continue Dilantin -No recent seizures -No symptoms to suggest Dilantin toxicity Hyperlipidemia, present on admission, chronic -Continue Crestor Hypertension, present on admission, chronic -admit BP 145/72 -Continue Lisinopril
[2019-10-10] MEDS: SODIUM CHLORIDE 0.9% 1,000 ML 100 ML IV (14:53)
[2019-10-10] MEDS: methylPREDNISolone 125 MG/2 ML VIAL 60 MG IV ×2 (14:56→20:56)
--- NOTE | 2019-10-10 15:25 | PC.ADMIT ---
[address] Admission Note: The patient,Jackie Lopez,64 y/o, was given written information regarding hospital policies, unit procedures and contact persons. Patient's smoking status: Former smoker. Vital Signs - 8 hr 10/10/19 10:56 10/10/19 11:25 10/10/19 11:31 Temperature 98.6 F Pulse Rate 92 H 82 Respiratory Rate 34 H 23 Blood Pressure 181/85 H Blood Pressure [Left Arm] 131/80 Pulse Oximetry 81 L 92 94 10/10/19 11:50 10/10/19 12:00 10/10/19 12:25 Temperature Pulse Rate 81 77 Respiratory Rate 25 H 22 Blood Pressure Blood Pressure [Left Arm] 140/64 132/67 Pulse Oximetry 93 94 95 10/10/19 12:28 10/10/19 12:30 10/10/19 13:00 Temperature Pulse Rate 77 85 Respiratory Rate 21 22 Blood Pressure Blood Pressure [Left Arm] 132/64 153/74 H Pulse Oximetry 93 94 94 10/10/19 13:30 10/10/19 14:41 10/10/19 15:08 Temperature 98.7 F Pulse Rate 88 78 79 Respiratory Rate 21 16 27 H Blood Pressure 132/64 145/72 H Blood Pressure [Left Arm] 132/70 Pulse Oximetry 92 94 94 Rec'd pt from ED to rm 227 via stretcher at 1452. Pt stood and ambulated to BR with steady gait on RA. After back to bed, pt noted to tachypneic and short of breath with SPO2 82%. Applied O2 at 2LPM via NC for SPO2 94% with 2 minutes of rest. VSS. Educated to fall risk, use of call light, and instructed to wait for assistance before getting OOB. Oriented to room, routine, environment, plan of care. Pt verbalizes understanding. Report given to evening RN.
[2019-10-10 15:35] LABS: Appearance Urine UA CLEAR; Bilirubin Urine UA NEGATIVE (NEGATIVE); Color Urine UA YELLOW; Glucose Urine UA NEGATIVE (Negative); Ketones Urine UA NEGATIVE (NEGATIVE); Leukocyte Esterase Urine UA NEGATIVE (NEGATIVE); Nitrite Urine UA NEGATIVE (Negative); Occult Blood Urine UA NEGATIVE (Negative); Protein Urine UA NEGATIVE (Negative); Urobilinogen Urine UA 0.2 E.U./dL (0.2)
[2019-10-10 16:00] LABS: RBC Urine 0-1/HPF (0-5/HPF)
[2019-10-10 16:01] LABS: Bacteria Urine Few (2-10); Culture Indicated Urine Cult Not Indicated; Mucus Urine 1+ (Negative); Squamous Epithelial Cell Urine 1-5 /HPF (0-5/HPF); WBC Urine 0-1/HPF (0-5/HPF)
[2019-10-10] MEDS: PHENYTOIN ER 100 MG CAPSULE PO ×2 (16:26→20:57)
[2019-10-10] MEDS: ALBUTEROL HFA 200 PUFF/18 GM INH (COVID POS/VENT PTS) INH ×3 (17:16→23:27)
[2019-10-10 18:09] LABS: COVID19 -Nasal RAPID Negative (Negative)
[2019-10-11] VITALS (12 sets, daily range): BP systolic 105–137; BP diastolic 51–76; PULSE 72–96; RESP 14–23; TEMP 36.2–37.2; O2SAT 89–95
[2019-10-11 05:26] LABS: BUN Creatinine Ratio 20.8 (6-22); Blood Urea Nitrogen 11 mg/dL (7-17); Calcium 9.4 mg/dL (8.4-10.2); Carbon Dioxide 29 mmol/L (22-32); Chloride 105 mmol/L (98-107); Estimated Glomerular Filt Rate > 60.0 mL/min (>60); Glucose 119 mg/dL (80-110); HEMOLYSIS < 15 (0-50); Potassium 4.8 mmol/L (3.4-5.1); Sodium 137 mmol/L (137-145)
[2019-10-11 05:27] LABS: Add Manual Diff / Slide Review NO; Basophils Absolute Auto 0 /uL (0-100); Basophils Percent Auto 0.3 % (0-2); Eosinophils Absolute Auto 0 /uL (0-450); Eosinophils Percent Auto 0.2 % (2-4); Hematocrit 39.2 % (36-46); Hemoglobin 13.4 g/dL (12.0-16.0); Lymphocytes Absolute Auto 1200 /uL (1100-4500); Lymphocytes Percent Auto 13.3 % (25-40); Mean Corpuscular Hemoglobin 30.4 PG (26-34); Mean Corpuscular Volume 89.2 fL (80-100); Monocytes Absolute Auto 600 /uL (0-900); Monocytes Percent Auto 6.4 % (3-14); Neutrophils Absolute Auto 7300 /uL (1500-7000); Neutrophils Percent Auto 79.8 % (50-75); Platelet Count 190 X10^3/uL (150-400); Red Cell Distribution Width 13.2 % (11.6-14.8); White Blood Cell Count 9.1 X10^3/uL (4.5-11.0)
[2019-10-11] MEDS: methylPREDNISolone 125 MG/2 ML VIAL 60 MG IV ×3 (06:08→21:25)
[2019-10-11] MEDS: SODIUM CHLORIDE 0.9% FLUSH 10 ML IV ×3 (06:09→20:22)
[2019-10-11] MEDS: ALBUTEROL HFA 200 PUFF/18 GM INH (COVID POS/VENT PTS) INH ×4 (08:40→19:51)
--- NOTE | 2019-10-11 08:56 | PM.PN.1 ---
Subjective Subjective Date Patient Seen: 10/11/19 Time Patient Seen: 08:57 Interval history: She is seen in her room here today to follow-up her COPD exacerbation, seizures and depression. She asks about her chest x-ray and so I was able to show the actual film to her on the computer monitor, explaining that COPD changes that she could see. She appears to be very down and quite serious minded about the lung damage she has. She has stabilized nicely at 2 L nasal cannula with saturations in the 90-94 range. Exam Vital Signs (past 8 hours): - 10/11/19 05:39 10/11/19 08:40 Temperature 97.6 F Pulse Rate 80 77 Respiratory Rate 18 16 Blood Pressure 133/60 Pulse Oximetry 94 93 Oxygen Delivery Method Nasal Cannula Oxygen Flow Rate 1.5 Narrative Exam Narrative: Alert and oriented x3, no apparent distress Heart is regular rate and rhythm without murmur Lungs have wheezes bilaterally diminished from yesterday Extremities have no ankle edema Objective Labs Result Diagrams: 10/11/19 04:48 10/11/19 04:48 Labs: Laboratory Results - last 24 hr 10/10/19 10/10/19 10/10/19 11:10 11:10 11:10 WBC 5.5 RBC 4.86 Hgb 14.8 Hct 43.0 MCV 88.7 MCH 30.5 MCHC 34.4 RDW 13.2 Plt Count 194 Neut % (Auto) 51.6 Lymph % (Auto) 26.1 Placer % (Auto) 8.0 Eos % (Auto) 13.3 H Baso % (Auto) 1.0 Neut # (Auto) 2900 Lymph # (Auto) 1400 Placer # (Auto) 400 Eos # (Auto) 700 H Baso # (Auto) 100 PT 11.7 INR 1.0 APTT 27 Sodium 140 Potassium 3.9 Chloride 104 Carbon Dioxide 30 BUN 8 Creatinine 0.56 Estimated GFR > 60.0 BUN/Creatinine Ratio 14.3 Glucose 107 Calcium 9.8 Magnesium Total Bilirubin 0.6 AST 21 ALT 13 Alkaline Phosphatase 98 Troponin I < 0.012 NT-Pro-B Natriuret Pep 36 Total Protein 8.2 Albumin 4.6 Globulin 3.6 Albumin/Globulin Ratio 1.3 Lipase 108 Procalcitonin Urine Color Urine Appearance Urine pH Ur Specific [place] Urine Protein Urine Glucose (UA) Urine Ketones Urine Occult Blood Urine Nitrate Urine Bilirubin Urine Urobilinogen Ur Leukocyte Esterase Urine RBC Urine WBC Ur Squamous Epith Cells Urine Bacteria Urine Mucus Ur Culture Indicated? Nasal Screen MRSA (PCR) COVID-19 PCR 10/10/19 10/10/19 10/10/19 11:10 11:10 11:10 WBC RBC Hgb Hct MCV MCH MCHC RDW Plt Count Neut % (Auto) Lymph % (Auto) Placer % (Auto) Eos % (Auto) Baso % (Auto) Neut # (Auto) Lymph # (Auto) Placer # (Auto) Eos # (Auto) Baso # (Auto) PT INR APTT Sodium Potassium Chloride Carbon Dioxide BUN Creatinine Estimated GFR BUN/Creatinine Ratio Glucose Calcium Magnesium 2.0 Total Bilirubin AST ALT Alkaline Phosphatase Troponin I NT-Pro-B Natriuret Pep Total Protein Albumin Globulin Albumin/Globulin Ratio Lipase Procalcitonin < 0.05 Urine Color Urine Appearance Urine pH Ur Specific [place] Urine Protein Urine Glucose (UA) Urine Ketones Urine Occult Blood Urine Nitrate Urine Bilirubin Urine Urobilinogen Ur Leukocyte Esterase Urine RBC Urine WBC Ur Squamous Epith Cells Urine Bacteria Urine Mucus Ur Culture Indicated? Nasal Screen MRSA (PCR) COVID-19 PCR Cancelled 10/10/19 10/10/19 10/10/19 14:55 15:00 17:10 WBC RBC Hgb Hct MCV MCH MCHC RDW Plt Count Neut % (Auto) Lymph % (Auto) Placer % (Auto) Eos % (Auto) Baso % (Auto) Neut # (Auto) Lymph # (Auto) Placer # (Auto) Eos # (Auto) Baso # (Auto) PT INR APTT Sodium Potassium Chloride Carbon Dioxide BUN Creatinine Estimated GFR BUN/Creatinine Ratio Glucose Calcium Magnesium Total Bilirubin AST ALT Alkaline Phosphatase Troponin I NT-Pro-B Natriuret Pep Total Protein Albumin Globulin Albumin/Globulin Ratio Lipase Procalcitonin Urine Color Yellow Urine Appearance Clear Urine pH 6.0 Ur Specific [place] 1.020 Urine Protein Negative Urine Glucose (UA) Negative Urine Ketones Negative Urine Occult Blood Negative Urine Nitrate Negative Urine Bilirubin Negative Urine Urobilinogen 0.2 Ur Leukocyte Esterase Negative Urine RBC 0-1/hpf Urine WBC 0-1/hpf Ur Squamous Epith Cells 1-5 /hpf Urine Bacteria Few (2-10) H Urine Mucus 1+ H Ur Culture Indicated? Cult not indicated Nasal Screen MRSA (PCR) Negative for mrsa COVID-19 PCR Negative 10/11/19 10/11/19 04:48 04:48 WBC 9.1 D RBC 4.40 Hgb 13.4 Hct 39.2 MCV 89.2 MCH 30.4 MCHC 34.0 RDW 13.2 Plt Count 190 Neut % (Auto) 79.8 H D Lymph % (Auto) 13.3 L [place] % (Auto) 6.4 Eos % (Auto) 0.2 L Baso % (Auto) 0.3 Neut # (Auto) 7300 H Lymph # (Auto) 1200 Placer # (Auto) 600 Eos # (Auto) 0 Baso # (Auto) 0 PT INR APTT Sodium 137 Potassium 4.8 Chloride 105 Carbon Dioxide 29 BUN 11 Creatinine 0.53 Estimated GFR > 60.0 BUN/Creatinine Ratio 20.8 Glucose 119 H Calcium 9.4 Magnesium Total Bilirubin AST ALT Alkaline Phosphatase Troponin I NT-Pro-B Natriuret Pep Total Protein Albumin Globulin Albumin/Globulin Ratio Lipase Procalcitonin Urine Color Urine Appearance Urine pH Ur Specific [place] Urine Protein Urine Glucose (UA) Urine Ketones Urine Occult Blood Urine Nitrate Urine Bilirubin Urine Urobilinogen Ur Leukocyte Esterase Urine RBC Urine WBC Ur Squamous Epith Cells Urine Bacteria Urine Mucus Ur Culture Indicated? Nasal Screen MRSA (PCR) COVID-19 PCR Assessment & Plan Assessment & Plan narrative: Acute Hypoxic Respiratory Failure, present on admission, acute -CXR negative, Procalcitonin normal and WBC 6.5 -Treat COPD with Oxygen, Albuterol and Solumedrol -COVID negative COPD Exacerbation, present on admission, acute -IV Solumedrol, Nebulized Albuterol and Oxygen to maintain sat above 90% -likely to need 1-2 more days inpatient before hypoxia clears and can transition to home treatment Major Depression, present on admission, chronic -Continue high dose Citalopram which she seems to tolerate quite well. Seizure Disorder, present on admission, chronic -Continue Dilantin -No recent seizures -No symptoms to suggest Dilantin toxicity Hyperlipidemia, present on admission, chronic -Continue Crestor Hypertension, present on admission, chronic -admit BP 145/72 -Continue Lisinopril
[2019-10-11] MEDS: ENOXAPARIN 40 MG/0.4 ML SYRINGE SUBCUT (09:57)
[2019-10-11] MEDS: lisinopriL 20 MG TABLET PO (09:57)
[2019-10-11] MEDS: CITALOPRAM 20 MG TABLET 80 MG PO (09:57)
[2019-10-11] MEDS: PHENYTOIN ER 100 MG CAPSULE PO ×3 (09:57→20:22)
[2019-10-11] MEDS: ROSUVASTATIN 10 MG TABLET 20 MG PO (09:58)
--- NOTE | 2019-10-11 10:00 | PT.IIE ---
Current Diagnoses Chronic obstructive pulmonary disease with (acute) exacerbation (10/10/19) Surgical History (Last Reviewed 10/10/19 @ 16:03 by CHARLIE Whelan) No history of previous surgery (Resolved) Medical History (Last Reviewed 10/10/19 @ 16:03 by CHARLIE Whelan) COPD (chronic obstructive pulmonary disease) (Acute) Depression (Chronic 1998) GERD (gastroesophageal reflux disease) (Chronic) Hypertension (Chronic) Restless leg syndrome (Chronic) Seizure (Chronic 1979) Urinary incontinence (Chronic) Physical Therapy Inpatient Evaluation/Re-Eval M1 PT/OT-IP Prior Functional Status Start: 10/11/19 14:13 Freq: NEEDED Status: Active Protocol: Document 10/11/19 10:00 AB (Rec: 10/11/19 14:40 AB [id number]) Medical Review Prior Functional Status Medical History Reviewed Yes Communication able to make needs known Mobility and Gait stated that she is independent with all mobilities and ambulation without AD Social History Household Members spouse Living Arrangements House Number of Floors (Floors) Two Floors Number of Stairs To Enter/Railing? 3 steps to enter with bilateral wide rails and can only hold on to one rail at a time has 14 steps to bedroom level with R rail ascending/L side wall Home Environment High Toilet,Tub/Shower Home Equipment Shower Seat with Backrest,Hand Held Shower,Grab Bars In Shower Additional Social History Comment pt has spouse to assist her but stated that she is also taking care of her father M2 PT-IP Current Condition Start: 10/11/19 14:13 Freq: NEEDED Status: Active Protocol: Document 10/11/19 10:00 AB (Rec: 10/11/19 14:40 AB [id number]) Physical Therapy Current Condition Current Condition Evaluation Date 10/11/19 Treatment Diagnosis COPD exacerbation; generalized weakness Onset Date 10/10/19 Precautions Other Precautions O2 sat M3 PT-IP Subjective Start: 10/11/19 14:13 Freq: NEEDED Status: Active Protocol: Document 10/11/19 10:00 AB (Rec: 10/11/19 14:40 AB [id number]) Subjective Physical Therapy Visit Type Type Initial Evaluation Visit Start Time 10:00 Visit Stop Time 10:21 Total Visit Minutes 21 Number of TRADE RECRUITER Visits 0 Physical Therapy Visit Comments Patient Comments pt is agreeable to do PT Therapy Pain Assessment Pain Present Pain Present Denied Pain M4 PT-IP Mobility and Gait Start: 10/11/19 14:13 Freq: NEEDED Status: Active Protocol: Document 10/11/19 10:00 AB (Rec: 10/11/19 14:40 AB [id number]) PT-Bed Mobility Assessment Supine to Sit Supine to Sit Independent Sit to Supine Sit to Supine Independent PT-Transfer Assessment Sit to and From Stand Sit to and from Stand Standby Assistance,1 Person Assistance Equipment Transfer Assistive Device None,Gait Belt Orthotic/Prosthetic Devices or Brace: No Transfers Transfer Destination Bed Transfer Technique ambulated without AD Transfer Ability Level of Assist Standby Assistance Comments Mobility Comments pt sitting on chair and agreeable to do PT. O2 sat with 2L/min O2. completed sit to stand SBA and ambulated without AD to the bed SBA. O2 sat decreased to 87% and cued pt for PLB. required >2 min to increase O2 sat to ~ 89-90% . pt completed sit to supine mod I. agreed to ambulate more in room and completed 100 ft without AD SBA. O2 sat decreased to ~ 88% and cues for PLB and O2 sat increased to ~94% afterwards and with rest. positioned pt on chair. call light and table placed within reach. informed nurse regarding mobility and O2 sat. Gait Assessment Gait Gait Assistance Required: Standby Assistance Distance (Feet) 100 Able to Maintain Weight Bearing Status Yes During Gait Assistive Devices Assistive Device None,Gait Belt Factors Limiting Gait Function Factors Limiting Gait Function Decreased Activity Tolerance, Respiratory Distress Comments Gait Comments pls refer to mobility section for details PT-Balance Assessment Sitting Balance and Reactions Static Sitting Balance Ability Normal Dynamic Sitting Balance Ability Normal Standing Balance and Reactions Static Standing Balance Ability Good Dynamic Standing Balance Ability Good Device Used without AD M5 PT-IP Objective Assessments Start: 10/11/19 14:13 Freq: NEEDED Status: Active Protocol: Document 10/11/19 10:00 AB (Rec: 10/11/19 14:40 AB [id number]) Orientation Orientation/Cognition Level of Alertness Alert Orientation Name,Age,Birthday,Month,Date, Year,Day of Week,Place, Situation Language Function Ability No Deficits Noted Safety Awareness Understands Safety Issues Memory Description No Deficits Noted Gross Range of Motion Lower Extremity ROM Assessment Within Functional Limits Strength Lower Extremity Strength Assessment Within Functional Limits Coordination Assessment Gross Coordination Gross Coordination WNL Muscle Tone Muscle Tone WNL Yes M6 PT-IP Treatment Start: 10/11/19 14:13 Freq: NEEDED Status: Active Protocol: Document 10/11/19 10:00 AB (Rec: 10/11/19 14:40 AB [id number]) Physical Therapy Treatment Education Education Provided Safety M7 PT-IP Assessment and Plan Start: 10/11/19 14:13 Freq: NEEDED Status: Active Protocol: Document 10/11/19 10:00 AB (Rec: 10/11/19 14:40 AB [id number]) PT Summary Assessment and Plan Potential Rehabilitation Potential Good Status of Condition at Evaluation Evolving Summary Impairments Transfers,Gait,Activity Tolerance Assessment Summary pt only requiring SBA with mobility but with decrease activity tolerance with decrease in O2 sat to 87-88% with ambulation with 2L/min O2 and requires 1-2 min to recover. pt stated that spouse will be able to assist her. will have to complete stair climbing training when appropriate and increase ambulation activity tolerance. pt may go home with assist and will benefit from outpt cardiopulmonary rehab. Goals Transfer Goal Independent Gait Goal Independent Gait Distance 200 Other Goals up/down 14 steps R rail ascending SBA Days to Meet Goals 5 Frequency of Treatment Frequency Of Treatment Once a Day Treatment Plan Physical Therapy Treatment Plan Bed Mobility Training,Transfer Training,Gait Training, Therapeutic Exercise,Balance Retraining,Discharge Planning, Neuromuscular Re-ed Recommendations To Nursing Amount of Assist Needed Standby Assistance Discharge Recommendations PT Discharge Recommendations Home with Assistance, Outpatient PT Transportation Needs at Discharge Private Vehicle
--- NOTE | 2019-10-11 11:47 | CM.DANOTE ---
DCP: Case received, EMR reviewed and met with patient. Introduced self and role. Was able to meet with patient and obtain information regarding her baseline activity level, health, and living situation. DCP assessment completed with information currently available. Patient is a 64 year old female who admitted yesterday afternoon to the care of the hospitalist team. PCP: Aminata GUERRA. Payer: confirmed: Medicare/Medicaid. Patient came to the hospital via private vehicle secondary to dyspnea, as well as wheezing. Patient holds current diagnosis of exacerbation of COPD, and hypoxia. Patient has history of COPD, was a smoker who recently quit. She was supposed to see a wire loop machine operator, that was referred by her primary provider, but had not yet gotten an appointment due to having dental issues, and the COVID situation. She also has a history of depression, and is on a high dose of Citalopram. Met with patient in her room. She was sitting up in bed, alert and oriented. She is currently on 2 liters of oxygen, but is not on any home oxygen at baseline. She is independent at home, and resides with her , Nba. Patient is working with RT, and also has P.T, O.T. orders. P: DCP to continue to follow and will be available for any resources needed before discharge. Siena Butler RN/Marine Resource Economist
--- NOTE | 2019-10-11 15:53 | OT.IP.EVAL ---
Current Diagnoses Chronic obstructive pulmonary disease with (acute) exacerbation (10/10/19) Past Medical History (Last Reviewed 10/10/19 @ 16:03 by CHARLIE Whelan) COPD (chronic obstructive pulmonary disease) (Acute) Depression (Chronic 1998) GERD (gastroesophageal reflux disease) (Chronic) Hypertension (Chronic) Restless leg syndrome (Chronic) Seizure (Chronic 1979) Urinary incontinence (Chronic) Surgical History (Last Reviewed 10/10/19 @ 16:03 by CHARLIE Whelan) No history of previous surgery (Resolved) Occupational Therapy Inpatient Evaluation/Re-Eval M1 PT/OT-IP Prior Functional Status Start: 10/11/19 15:58 Freq: NEEDED Status: Active Protocol: Document 10/11/19 15:58 [facility] (Rec: 10/11/19 16:18 [facility] [id number]) Medical Review Prior Functional Status Medical History Reviewed Yes Communication able to make needs known Mobility and Gait stated that she is independent with all mobilities and ambulation without AD Activities of Daily Living and IADL's Independent with all ADL,IADL, driving, taking care of her father and pets. Social History Household Members spouse Living Arrangements House Number of Floors (Floors) Two Floors Number of Stairs To Enter/Railing? 3 steps to enter with bilateral wide rails and can only hold on to one rail at a time has 14 steps to bedroom level with R rail ascending/L side wall Home Environment High Toilet,Tub/Shower Home Equipment Shower Seat with Backrest,Hand Held Shower,Grab Bars In Shower Additional Social History Comment pt has spouse to assist her but stated that she is also taking care of her father M2 OT-IP Current Condition Start: 10/11/19 15:58 Freq: Status: Active Protocol: Document 10/11/19 15:58 [facility] (Rec: 10/11/19 16:18 [facility] [id number]) Occupational Therapy Current Condition Current Condition Evaluation Date 10/11/19 Treatment Diagnosis Exacerbation of COPD and hypoxia Diagnosis Onset Date 10/10/19 Weight Bearing Status Weight Bearing Status Weight Bear as Tolerated M3 OT- IP Subjective and Pain Start: 10/11/19 15:58 Freq: Status: Active Protocol: Document 10/11/19 15:58 [facility] (Rec: 10/11/19 16:18 [facility] [id number]) OT- Subjective Occupational Therapy Visit Type Type Initial Evaluation Visit Start Time 15:24 Visit Stop Time 15:53 Total Visit Minutes 29 OT Pain Assessment Pain When Pain Assessed At Rest Pain Present Pain Present Pain Reported Location Head Intensity 2 M4 OT- IP ADL's Start: 10/11/19 15:58 Freq: Status: Active Protocol: Document 10/11/19 15:58 [facility] (Rec: 10/11/19 16:18 [facility] [id number]) OT [id number] Comments OT Self-Feeding Comments Not at meal time. OT ADL-Dressing General Eval Upper Body Dressing Ability Independent Lower Body Dressing Ability Independent OT ADL-Toileting General Evaluation Toileting Ability Independent OT ADL-Bathing Bathing Type Bathing Type Shower General Evaluation Bathing Ability Standby Assistance Comments OT Bathing Comments Pt needing cues to take her time and use of shower chair to sit to dry off and get dressed. Pt states can use her father's shower chair at home. M5 OT- IP IADL's Start: 10/11/19 15:58 Freq: Status: Active Protocol: Document 10/11/19 15:58 [facility] (Rec: 10/11/19 16:18 [facility] [id number]) OT-Instrumental Activities of Daily Living Deficits IADL Deficits Identified No Deficits Home Safety Awareness Awareness of Need for Assistance at Home Good Awareness Ability to Problem Solve Emergency Able to Problem Solve Situations Home Safety Comments Due to decreased activity tolerance, pt would benefit from spouse to assist with IADl needs. Medication Management Medication Management No Deficits Identified Money Management Money Management No Deficits Identified M6 OT- IP Functional Cognition Start: 10/11/19 15:58 Freq: Status: Active Protocol: Document 10/11/19 15:58 [facility] (Rec: 10/11/19 16:18 [facility] [id number]) Cognitive Factors Limiting Selfcare Function Cognitive Ability Level of Alertness Alert Patient Orientation Name,Age,Birthday,Month,Date, Year,Day of Week,Place, Situation Attention Span Ability Capable of Focused Attention, Capable of Sustained Attention Ability to Follow Commands Able to Follow One Step Commands Memory Description No Deficits Noted Cognitive Comments Cognitive Assessment Comments No cognitive deficits noted, pt appears to be at baseline. OT- Vision and Hearing OT- Hearing Assessment OT- Hearing Assessment WFL OT- Vision Assessment Visual Acuity WFL M7 OT- IP Mobility and Balance Start: 10/11/19 15:58 Freq: Status: Active Protocol: Document 10/11/19 15:58 [facility] (Rec: 10/11/19 16:18 [facility] [id number]) OT-Transfer Assessment Sit to and From Stand Sit to and from Stand Independent Transfers Transfer Ability Standby Assistance Technique Transfer Destination Chair,Shower Stall,Toilet Transfer Technique Stand Step Pivot Devices Transfer Assistive Devices None,Gait Belt Comments Mobility Comments Pt able to mobilize in the room with distant SBA. OT- Gait Assessment Comments Gait Ability Comments Distant SBA. OT- Balance Assessment Sitting Balance and Reactions Static Sitting Balance Ability Normal Dynamic Sitting Balance Ability Normal Standing Balance and Reactions Static Standing Balance Ability Normal Dynamic Standing Balance Ability Good M8 OT- IP Objective Assessments Start: 10/11/19 15:58 Freq: Status: Active Protocol: Document 10/11/19 15:58 [facility] (Rec: 10/11/19 16:18 [facility] [id number]) OT Gross Range of Motion Upper Extremity Range of Motion Assessment Within Functional Limits OT Strength Upper Extremity Strength Assessment Within Functional Limits OT-Muscle Tone Assessment Muscle Tone WNL Yes M9 OT- IP Assessment and Plan Start: 10/11/19 15:58 Freq: Status: Active Protocol: Document 10/11/19 15:58 [facility] (Rec: 10/11/19 16:18 [facility] [id number]) OT Summary Assessment and Plan Potential Rehabilitation Potential Excellent Analytic Complexity at Evaluation Low Summary OT Impairments Activity Tolerance Progress Towards Goals Safe For Discharge Assessment Summary Pt low complexity and main barrier is decreased activity tolerance and O2 drops with exertion. Pt O2 dropped to 85% and after one minue of rest increased to 89%. Able to give pt energy conservation information for pt to read and incorporate into her lifestyle. PT to continue to work on activity tolerance needs as pt is independent for ADl needs. Pt has a supportive to assist as home if needed. Goals Patient/Caregiver Education Goal Demonstrate Energy Conservation and Pacing Days to Meet Goals 1 Frequency of Treatment Frequency Of Treatment Once a Day Treatment Plan OT Treatment Plan Patient/Family Education, Discharge Planning Discharge Recommendations OT Discharge Recommendations Home with Assistance/ Cardiopulmonary rehab Transportation Needs at Discharge Private Vehicle
[2019-10-12 04:00] VITALS: BP 118/56; PULSE 70; RESP 16; TEMP 36.2; O2SAT 92
[2019-10-12 04:10] VITALS: PULSE 89; RESP 16; O2SAT 92
[2019-10-12] MEDS: ALBUTEROL HFA 200 PUFF/18 GM INH (COVID POS/VENT PTS) INH ×3 (04:10→10:11)
[2019-10-12] MEDS: predniSONE 20 MG TABLET 75 MG PO (07:28)
[2019-10-12 07:59] VITALS: BP 131/65; PULSE 64; RESP 16; TEMP 36.4; O2SAT 92
[2019-10-12] MEDS: CITALOPRAM 20 MG TABLET 80 MG PO (08:15)
[2019-10-12] MEDS: ROSUVASTATIN 10 MG TABLET 20 MG PO (08:15)
[2019-10-12] MEDS: ENOXAPARIN 40 MG/0.4 ML SYRINGE SUBCUT (08:15)
[2019-10-12 08:18] VITALS: BP 131/75
[2019-10-12] MEDS: PHENYTOIN ER 100 MG CAPSULE PO (08:18)
[2019-10-12] MEDS: lisinopriL 20 MG TABLET PO (08:18)
--- NOTE | 2019-10-12 09:34 | P.DS_ITS ---
History of Present Illness History of Present Illness Date Patient Seen: 10/12/19 Time Patient Seen: 09:34 Chief complaint: shortness of breath Narrative: This is a 64 year old female with acute respiratory failure and a COPD exacerbation. She describes 4 months of worsening shortness of breath and wheezing with a recent referral to pulmonology from her primary care office. She finally stopped smoking last month. She presents now with severe dyspnea and cough productive of green sputum. She has had no fevers or chest pain. Her O2 saturation was in the 80s on room air at her primary care physician's office follow-up today. She was referred to the emergency department where her initial oxygen saturation was 81% on room air. She was tripodding to breathe. With Solu-Medrol, albuterol and oxygen she improved quite readily and by the time I see her is no longer in respiratory distress. She is needing 3 L of nasal cannula oxygen to maintain sats at 93%. Her chest x-ray and procalcitonin are normal. A covid test is pending but she has been quarantining herself, avoiding exposures and has no known exposures to covid. She does have a history of s eizures treated with Dilantin and a history of depression treated with very high dose citalopram. She has never been admitted for COPD or respiratory distress before. She seems quite frightened by the process of worsening breathing. Her smoking history is quite extensive. Discharge Providers Provider Date of admission: 10/10/19 13:27 Discharge Date: 10/12/19 Primary care physician: CHARLIE Whelan Consults: 10/10/19 11:29 Consult to Respiratory Therapy Evaluate & Treat Comment: Physician Instructions: Evaluate and treat 10/10/19 13:35 Consult to Occupational Therapy Evaluate & Treat Comment: Physician Instructions: Evaluate and treat Consult to Physical Therapy Evaluate & Treat Comment: Physician Instructions: Evaluate and Treat Discharge provider: Roseann Gamez MD Summary Hospital Course Discharge Diagnosis: Acute Hypoxic Respiratory Failure COPD Exacerbation Major Depression Seizure Disorder Hyperlipidemia Hypertension Hospital Course: Acute Hypoxic Respiratory Failure, present on admission, acute -CXR negative, Procalcitonin normal and WBC 6.5 -Treat COPD with Oxygen, Albuterol and Solumedrol -COVID negative -10/11 resolved, off oxygen now COPD Exacerbation, present on admission, acute -She responded to IV Solumedrol, Nebulized Albuterol and Oxygen to maintain sat above 90% -home today on Advair and Prednisone taper Major Depression, present on admission, chronic -Continue high dose Citalopram which she seems to tolerate quite well. Seizure Disorder, present on admission, chronic -Continue Dilantin -No recent seizures -No symptoms to suggest Dilantin toxicity Hyperlipidemia, present on admission, chronic -Continue Crestor Hypertension, present on admission, chronic -admit BP 145/72 -Continue Lisinopril Status at Discharge Cognitive/behavioral status at discharge: at baseline, oriented Functional status at discharge: independent ambulation Overall status at discharge: patient is back to baseline Time Spent with Patient Time spent: Less than 30 minutes Exam Vital Signs (past 8 hours): - 10/12/19 04:00 10/12/19 04:10 10/12/19 07:59 Temperature 97.2 F L 97.5 F L Pulse Rate 70 89 64 Respiratory Rate 16 16 16 Blood Pressure 118/56 L 131/65 Pulse Oximetry 92 92 92 10/12/19 08:18 Temperature Pulse Rate Respiratory Rate Blood Pressure 131/75 Pulse Oximetry Oxygen Delivery Method Room Air Oxygen Flow Rate 0 Narrative Exam Narrative: She is alert and oriented x3, in no apparent distress. She tells me that she has been off oxygen all night although the records indicate she is still on 2 L. In reality she is not on oxygen. Her saturation is 92%. Heart is regular rate and rhythm without murmur Lungs are clear to auscultation bilaterally Extremities no ankle edema Objective Labs Result Diagrams: 10/11/19 04:48 10/11/19 04:48 Discharge Plan Discharge Plan Patient Disposition: Home Discharge comment: Follow up with your primary care Aminata Santos in one week. Take the Prednisone tapering doses of steroids and begin using an Advair inhaler twice a day. Discharge orders & Medications Prescriptions: New fluticasone propion-salmeterol [Advair Diskus] 250-50 mcg/dose blister with device 1 inhalation INHALATION BID Qty: 60 RF: 0 prednisone 10 mg tablet See Rx Instructions .ROUTE .COMPLEX Qty: 38 RF: 0 Continued rosuvastatin [Crestor] 20 mg tablet 20 mg PO DAILY Qty: 30 RF: 5 lisinopril 20 mg tablet 20 mg PO DAILY Qty: 90 RF: 3 citalopram 40 mg tablet 80 mg PO DAILY Qty: 180 RF: 1 albuterol sulfate [ProAir HFA] 90 mcg/actuation HFA aerosol inhaler 2 puff INHALATION Q6H PRN (Reason: shortness of breath or wheezing) Qty: 6.7 RF: 12 phenytoin sodium extended [Dilantin Extended] 100 mg capsule 100 mg PO TID Qty: 270 RF: 1 Follow up/Referrals: Aminata Santos ARNP [Primary Care Provider] - Diet/Activity/Treatments Diet: Regular Discharge Data Primary Care Provider: Aminata Santos
[2019-10-12 10:12] VITALS: PULSE 82; RESP 16; O2SAT 91
--- NOTE | 2019-10-12 10:38 | PC.NURSE ---
DISCHARGE; PATIENT HAD COUGHING EPISODES UPON WAKENING THIS AM WITH RHONCHI. SAT 92% ON RA. DENIED SOB. COUGHING IMPROVED. PATIENT REPORTS INCREASED COUGH UPON AWAKENING BASELINE. INDEP IN RM, STEADY ON FEET. NO DYSPNEA NOTED. RT TX PRIOR TO DC. PATIENT CONFIRMS UNDERSTANDING ALL DC PAPERWORK. WILL LIQUOR ESTABLISHMENT MANAGER HER SCRIPTS FROM PHARMACY, WILL CALL TO SCHEDULE HER F/U APPT. PATIENT LEFT BY W/ THIS ACCOUNTING SPECIALIST ESCORT IN NO S/SX'S OF DISTRESS W/ SPOUSE TO DRIVE PATIENT HOME.
== END 2019-10-12 10:25 | disposition home or self-care (01) | DRG 190 ==
LOC: ED 11:25 → AC 13:28 → ICU 14:09 → AC 10-11 17:13
PROVIDERS: Emergency Medicine; Admitting Provider Family Medicine; Emergency Provider Nurse Practitioner Family; PCP Nurse Practitioner; Referring Provider Nurse Practitioner Family; Visit Provider Family Medicine
DX: J44.1 Chronic obstructive pulmonary disease with (acute) exacerbation (principal); J96.01 Acute respiratory failure with hypoxia; F33.9 Major depressive disorder, recurrent, unspecified; I10 Essential (primary) hypertension; E78.5 Hyperlipidemia, unspecified; G40.909 Epilepsy, unspecified, not intractable, without status epilepticus; Z03.818 Encounter for observation for suspected exposure to other biological agents ruled out; Z87.891 Personal history of nicotine dependence; Z51.81 Encounter for therapeutic drug level monitoring
CPT/HCPCS: 36415; 71045; 80048; 80053; 80061; 81001; 83690; 83735; 83880; 84145; 84484; 85025; 85610; 85730; 87635; 87797; 93005; 94640; 94760; 94762; 96365; 96375; 97161; 97165; 97535; 99285; J1650; J2930

== ENCOUNTER → 2019-10-28 11:33 | Outpatient (CLI) | payer MEDICARE, MEDICAID, SELFPAY ==
[2019-10-10 18:48] VITALS: BMI 30.2
[2019-10-29 10:47] LABS: COVID19 Sendout NOT DETECTED (Not Detect)
== END ==
PROVIDERS: PCP Nurse Practitioner; Visit Provider Physician Assistant
DX: Z01.812 Encounter for preprocedural laboratory examination (principal)
CPT/HCPCS: 87635

== ENCOUNTER → 2019-10-31 14:41 | Outpatient (CLI) | payer MEDICARE, MEDICAID, SELFPAY ==
[2019-10-10 18:48] VITALS: BMI 30.2
--- NOTE | 2019-11-07 08:17 | PM.PFT.1 ---
Pulmonary Function Test Referral & Results Date Patient Seen: 10/31/19 Requesting provider: Aminata Santos Indication: COPD Results: The spirometry demonstrates an FVC of 2.19 L which is 64% of predicted. The FEV1 was measured at 1.16 L which is 44% of predicted. The FEV1/FVC ratio was 53 which is 68% of predicted. Following the administration of bronchodilator there was no significant change. Lung volumes show an SVC of 2.24 L which is 70% of predicted. The diffusing capacity was measured at 17.35 which is 64% of predicted. No hemoglobin value was provided, so no correction for potential anemia could be made, if appropriate. The maximum voluntary ventilation was reduced Interpretation: This study demonstrates moderately severe obstructive lung disease based on reduction FEV1. There is no significant evidence of benefit following bronchodilator administration There is also mild restrictive lung disease present based on reduction in SVC There is also moderate reduction in diffusing capacity suggesting some element of disease at the capillary alveolar level Altogether this is consistent with a diagnosis of COPD. Clinical correlation suggested
== END ==
PROVIDERS: PCP Nurse Practitioner; Referring Provider Nurse Practitioner; Visit Provider Nurse Practitioner
DX: J44.9 Chronic obstructive pulmonary disease, unspecified (principal); R09.02 Hypoxemia; Z87.891 Personal history of nicotine dependence
CPT/HCPCS: 94060; 94726; 94729

== ENCOUNTER → 2019-11-28 15:36 | Outpatient (CLI) | payer MEDICARE, MEDICAID, SELFPAY ==
[2019-10-10 18:48] VITALS: BMI 30.2
[2019-11-28 16:47] LABS: Add Manual Diff / Slide Review NO; Basophils Absolute Auto 100 /uL (0-100); Eosinophils Absolute Auto 400 /uL (0-450); Eosinophils Percent Auto 4.5 % (2-4); Hematocrit 40.1 % (36-46); Hemoglobin 13.7 g/dL (12.0-16.0); Lymphocytes Absolute Auto 1900 /uL (1100-4500); Lymphocytes Percent Auto 23.3 % (25-40); Mean Corpuscular HGB Conc 34.1 % (30-36); Mean Corpuscular Hemoglobin 30.3 PG (26-34); Mean Corpuscular Volume 88.8 fL (80-100); Monocytes Absolute Auto 600 /uL (0-900); Monocytes Percent Auto 7.4 % (3-14); Neutrophils Absolute Auto 5200 /uL (1500-7000); Neutrophils Percent Auto 63.8 % (50-75); Platelet Count 210 X10^3/uL (150-400); Red Blood Cell Count 4.51 X10^6/uL (4.0-5.2); Red Cell Distribution Width 13.4 % (11.6-14.8); White Blood Cell Count 8.1 X10^3/uL (4.5-11.0)
[2019-12-03 01:36] LABS: Alder IgE <0.10 kU/L (Class 0); Alternaria alternata IgE <0.10 kU/L (Class 0); Aspergillus fumigatus IgE <0.10 kU/L (Class 0); Box Elder IgE <0.10 kU/L (Class 0); Cladosporium herbarum IgE <0.10 kU/L (Class 0); Cockroach IgE <0.10 kU/L (Class 0); Cottonwood IgE <0.10 kU/L (Class 0); D farinae IgE <0.10 kU/L (Class 0); D pteronyssinus IgE <0.10 kU/L (Class 0); Dog Dander IgE <0.10 kU/L (Class 0); Elm Tree IgE <0.10 kU/L (Class 0); Immunoglobulin E 26 IU/mL (6-495); Mountain Cedar IgE <0.10 kU/L (Class 0); Mouse Urine Proteins IgE <0.10 kU/L (Class 0); Nettle IgE <0.10 kU/L (Class 0); Oak Tree IgE <0.10 kU/L (Class 0); Penicillium chrysogen IgE <0.10 kU/L (Class 0); Pigweed, Common IgE <0.10 kU/L (Class 0); Ragweed, Short <0.10 kU/L (Class 0); Sheep Sorrel IgE <0.10 kU/L (Class 0); Silver Birch IgE <0.10 kU/L (Class 0); Timothy Grass IgE 0.82 kU/L (Class II); Walnut Allery IgE < 0.10 kU/L (Class 0); White ash IgE <0.10 kU/L (Class 0)
[2020-01-02 10:23] LABS: Cat Dander IgE <0.10
== END ==
PROVIDERS: PCP Nurse Practitioner; Referring Provider Internal Medicine Critical Care Medicine; Visit Provider Internal Medicine Critical Care Medicine
DX: J45.20 Mild intermittent asthma, uncomplicated (principal)
CPT/HCPCS: 36415; 82785; 85025; 86003

== ENCOUNTER → 2020-03-04 14:40 | Outpatient (CLI) | payer MEDICARE, MEDICAID, SELFPAY ==
[2020-03-04 11:43] VITALS: BMI 30.2
--- NOTE | 2020-03-04 14:44 | DI.US.S_ITS ---
PROCEDURE: US PERIPH VENOUS LOW EXTREM LT INDICATIONS: Left leg pain, swelling, rule out DVT TECHNIQUE: Real-time imaging, as well as color and pulse Doppler interrogation, were performed of the lower extremity deep veins from the inguinal ligament to the popliteal fossa. COMPARISON: None. FINDINGS: The common femoral, femoral and popliteal veins are normally compressible, and free of intraluminal thrombus. Color and pulse Doppler demonstrate normal phasic intraluminal flow. There is normal augmentation response to distal compression maneuver. There is a large Arguello cyst in the popliteal fossa measuring 6.6 x 2.0 x 3.9 cm. IMPRESSION: 1. No DVT in the left lower extremity. 2. A 6.6 x 2.9 x 3.6 cm Arguello's cyst. Dictated by: Jennifer Gordillo M.D. on 03/04/2020 at 15:57 Approved by: Jennifer Gordillo M.D. on 03/04/2020 at 15:58
== END ==
PROVIDERS: PCP Nurse Practitioner; Referring Provider Family Medicine; Visit Provider Family Medicine
DX: M79.89 Other specified soft tissue disorders (principal); M71.22 Synovial cyst of popliteal space [Baker], left knee
CPT/HCPCS: 93971

== ENCOUNTER → 2021-04-18 11:10 | Outpatient (CLI) | payer OTHER, MEDICAID, SELFPAY ==
[2020-03-04 11:43] VITALS: BMI 30.2
--- NOTE | 2021-04-18 11:12 | DI.RAD.S_ITS ---
PROCEDURE: XR CHEST 2V INDICATIONS: fever, cough, rule out pneumonia TECHNIQUE: 2 views of the chest were acquired. COMPARISON: [facility], CR, XR CHEST 1V, 10/10/2019, 11:31. FINDINGS: Surgical changes and devices: None. Lungs and pleura: Mildly hyperinflated lungs with tethering at the lung bases. Laterally based alveolar opacity in the right mid lung. Slight blunting the right costophrenic angle. Mediastinum: Mediastinal contours are normal. Heart size is normal. Bones and chest wall: No suspicious bony abnormalities. Soft tissues appear unremarkable. IMPRESSION: 1. Lateral right upper lobe alveolar opacity most consistent with pneumonia. 2. Findings are superimposed on moderate emphysematous change. Dictated by: Ernestine Avila M.D. on 04/18/2021 at 12:51 Approved by: Ernestine Avila M.D. on 04/18/2021 at 12:52
== END ==
PROVIDERS: PCP Nurse Practitioner; Referring Provider Nurse Practitioner; Visit Provider Nurse Practitioner
DX: R05.9 Cough, unspecified (principal); R50.9 Fever, unspecified
CPT/HCPCS: 71046

== ENCOUNTER → 2022-06-05 07:04 | Outpatient (CLI) | payer OTHER, MEDICAID, SELFPAY ==
[2020-03-04 11:43] VITALS: BMI 30.2
[2022-06-05 08:24] LABS: Creatinine Urine Random 82.8 mg/dL
[2022-06-05 08:29] LABS: Microalbumi Creatinin Ratio Ur 7.2 ug/mg CR (<30); Microalbumin Urine Random 0.6 mg/dL (0-1.6)
[2022-06-05 08:44] LABS: Alanine Aminotransferase 21 IU/L (<35); Albumin 4.3 g/dL (3.5-5.0); Albumin Globulin Ratio 1.3 (1.0-2.8); Alkaline Phosphatase 82 U/L (38-126); Aspartate Aminotransferase 24 IU/L (14-36); Bilirubin Total 0.6 mg/dL (0.2-1.3); Blood Urea Nitrogen 12 mg/dL (7-17); Calcium 9.2 mg/dL (8.4-10.2); Carbon Dioxide 28 mmol/L (22-32); Chloride 106 mmol/L (98-107); Cholesterol 172 mg/dL (140-199); Estimated Glomerular Filt Rate > 60 mL/min (>60); Globulin 3.2 g/dL (1.7-4.1); Glucose 96 mg/dL (80-110); HDL Cholesterol 70 mg/dL (40-60); HEMOLYSIS < 15 (0-50); LDL Cholesterol Calculated 88 mg/dL (<100); Phenytoin / Dilantin 7.7 ug/mL (10-20); Potassium 4.2 mmol/L (3.4-5.1); Sodium 139 mmol/L (137-145); Total Protein 7.5 g/dL (6.3-8.2); Triglycerides 71 mg/dL (35-150)
[2022-06-05 08:59] LABS: Free T3, Triiodothyronine Free 4.05 pg/mL (2.77-5.27); Free T4, Direct Thyroxine 0.95 ng/dL (0.78-2.19)
[2022-06-05 09:13] LABS: Thyroid Stimulating Hormone 1.29 uIU/mL (0.47-4.68)
[2022-06-05 18:00] LABS: Hep C Virus Ab w/Reflex Quant NEGATIVE s/c (NEGATIVE)
== END ==
PROVIDERS: PCP Nurse Practitioner; Referring Provider Nurse Practitioner; Visit Provider Nurse Practitioner
DX: E78.2 Mixed hyperlipidemia (principal); R56.9 Unspecified convulsions; Z79.899 Other long term (current) drug therapy; F32.A Depression, unspecified; I10 Essential (primary) hypertension; J44.0 Chronic obstructive pulmonary disease with (acute) lower respiratory infection; Z11.59 Encounter for screening for other viral diseases
CPT/HCPCS: 36415; 80053; 80061; 80185; 82043; 82570; 84439; 84443; 84481; 86803

== ENCOUNTER → 2023-01-25 07:35 | Outpatient (CLI) | payer OTHER, MEDICAID, SELFPAY ==
[2020-03-04 11:43] VITALS: BMI 30.2
--- NOTE | 2023-01-25 07:36 | DI.CT.S_ITS ---
PROCEDURE: CT LUNG LOW DOSE SCREENING INDICATIONS: Quit smoking 2 years ago TECHNIQUE: Noncontrast 2.0-2.5 mm thick sections acquired from the pulmonary apices to the posterior costophrenic angles. 7 mm thick axial MIP, and 5 mm coronal and sagittal reformats were then acquired. A low radiation dose technique was utilized. COMPARISON: None. FINDINGS: Image quality: Diagnostic, given the low radiation dose technique. Lungs and pleura: Moderate centrilobular emphysema. Multiple tree-in-bud nodules of the lateral left upper lobe. Mediastinum: Heart size is normal. No pericardial effusion. No mediastinal adenopathy by size criteria. Thoracic aorta and central pulmonary arteries are normal in size. Esophagus is normal in caliber. Small hiatal hernia. Moderate coronary artery calcifications for age. Bones and chest wall: No suspicious bony lesions. No vertebral body compression fractures. No axillary or supraclavicular adenopathy by size criteria. Thyroid gland is unremarkable. T8 vertebral hemangioma. Mild anterior compression deformities of the T5 and T6 vertebral bodies. Abdomen: Visualized upper abdomen solid organs and bowel loops appear normal in the absence of contrast. IMPRESSION: Multiple tree-in-bud nodules in the lateral left upper lobe, likely mild infectious or inflammatory bronchiolitis. Moderate coronary artery calcifications for age. LUNG-RADS 2; continued annual follow-up if eligible. Dictated by: Roddy Hays M.D. on 01/25/2023 at 9:49 Approved by: Roddy Hays M.D. on 01/25/2023 at 9:55
--- NOTE | 2023-01-25 07:36 | DI.MG.S_ITS ---
BILATERAL DIGITAL SCREENING MAMMOGRAM 3D/2D WITH CAD: 01/25/2023 CLINICAL: Routine screening. Comparison is made to exam dated: 09/29/2016 mammogram - [facility]. There are scattered areas of fibroglandular density in both breasts (category b / 25%-50% glandular tissue). Current study was also evaluated with a Computer Aided Detection (CAD) system. No significant masses, calcifications, or other findings are seen in either breast. There has been no significant interval change. IMPRESSION: NEGATIVE There is no mammographic evidence of malignancy. A 1 year screening mammogram is recommended. Based on the Tyrer Cuzick model (a risk assessment model) the patient's lifetime risk is 3.5% and her 10 year risk is 1.9%. According to the ACR, ACS, and NCCN guidelines, an annual breast MRI exam along with mammogram is recommended if the patient's lifetime risk is 20% or greater. This exam was interpreted at Station ID: [id number]. NOTE: For mammograms, a report in lay terms will be sent to the patient. Approximately 15% of breast malignancies will not be visualized mammographically. In the management of a palpable breast mass, a negative mammogram must not discourage biopsy of a clinically suspicious lesion. Electronically Signed By: Mer hendrix/richard:01/25/2023 13:41:55 letter sent: Normal Exam ACR BI-RADS Category 1: Negative [id number]
== END ==
PROVIDERS: PCP Nurse Practitioner; Referring Provider Nurse Practitioner; Visit Provider Nurse Practitioner
DX: Z12.31 Encounter for screening mammogram for malignant neoplasm of breast (principal); J43.2 Centrilobular emphysema; Z12.2 Encounter for screening for malignant neoplasm of respiratory organs; I25.10 Atherosclerotic heart disease of native coronary artery without angina pectoris; F17.211 Nicotine dependence, cigarettes, in remission
CPT/HCPCS: 71271; 77063; 77067

== ENCOUNTER → 2023-05-04 07:21 | Outpatient (CLI) | payer OTHER, MEDICAID, SELFPAY ==
[2020-03-04 11:43] VITALS: BMI 30.2
[2023-05-04 08:57] LABS: Alanine Aminotransferase 23 IU/L (<35); Albumin 4.2 g/dL (3.5-5.0); Albumin Globulin Ratio 1.4 (1.0-2.8); Alkaline Phosphatase 63 U/L (38-126); Aspartate Aminotransferase 26 IU/L (14-36); BUN Creatinine Ratio 15.4 (6-22); Bilirubin Total 0.6 mg/dL (0.2-1.3); Blood Urea Nitrogen 10 mg/dL (7-17); Calcium 9.8 mg/dL (8.4-10.2); Carbon Dioxide 28 mmol/L (22-32); Chloride 103 mmol/L (98-107); Cholesterol 181 mg/dL (140-199); Estimated Glomerular Filt Rate > 60 mL/min (>60); Globulin 2.9 g/dL (1.7-4.1); HDL Cholesterol 76 mg/dL (40-60); HEMOLYSIS < 15 (0-50); LDL Cholesterol Calculated 80 mg/dL (<100); Potassium 4.2 mmol/L (3.4-5.1); Sodium 139 mmol/L (137-145); Total Protein 7.1 g/dL (6.3-8.2); Triglycerides 125 mg/dL (35-150)
[2023-05-04 09:08] LABS: Glucose 87 mg/dL (80-110)
[2023-05-04 09:23] LABS: Creatinine Urine Random 145.1 mg/dL
[2023-05-04 09:28] LABS: Microalbumi Creatinin Ratio Ur 13.7 ug/mg CR (<30)
== END ==
PROVIDERS: PCP Nurse Practitioner; Referring Provider Nurse Practitioner; Visit Provider Nurse Practitioner
DX: E78.2 Mixed hyperlipidemia (principal); J44.9 Chronic obstructive pulmonary disease, unspecified; F32.9 Major depressive disorder, single episode, unspecified; I10 Essential (primary) hypertension; R56.9 Unspecified convulsions
CPT/HCPCS: 36415; 80053; 80061; 82043; 82570; 84443

== ENCOUNTER → 2023-05-10 | Outpatient (CLI) | payer OTHER, SELFPAY ==
[2020-03-04 11:43] VITALS: BMI 30.2
--- NOTE | 2023-05-10 10:21 | DI.RAD.S_ITS ---
Bone Density Report Name: GARETH FERNANDES Age: 67 Sex: Female Ethnicity: White Date of : 1955 Indication: postmenopausal; screening for osteoporosis; Referring Provider: TRISTAN BARRON Study: Bone densitometry was performed. Exam Date: May 10, 2023 Accession number: [id number] Bone Density: Region BMD T-score Z-score Classification AP Spine(L1-L4) 0.942 -1.0 1.1 Normal Femoral Neck (Left) 0.671 -1.6 0.1 Osteopenia Total Hip (Left) 0.764 -1.5 0.0 Osteopenia Femoral Neck (Right) 0.638 -1.9 -0.2 Osteopenia Total Hip (Right) 0.769 -1.4 0.0 Osteopenia Total Hip Mean 0.766 -1.5 0.0 Osteopenia World Health Organization criteria for BMD impression classify patients as: Normal (T-score at or above -1.0), Osteopenia (T-score between -1.0 and -2.5), or Osteoporosis (T-score at or below -2.5). 10-year Fracture Risk(1): Major Osteoporotic Fracture 11% Hip Fracture 1.7% Reported Risk Factors: [place] (), Neck BMD=0.638, BMI=28.2 (1) FRAX(R) Version 3.08. Fracture probability calculated for an untreated patient. Fracture probability may be lower if the patient has received treatment. Impression: The patient has low bone mass, based on the Right Femoral Neck T-score. The patient has an estimated ten-year risk of hip fracture of 1.7% and an estimated ten-year risk of major fracture of 11%, based on the WHO FRAX algorithm. Discussion: BONE DENSITY IS LOW AT ONE OR MORE SKELETAL SITES. This patient's lowest T-score is low at one or more skeletal sites. It meets the World Health Organization's (WHO) criteria for low bone mass (T-score between -1.0 and -2.5). The patient's 10-year risk of fracture as calculated by FRAX is less than the threshold where pharmacological therapy is recommended by the National Osteoporosis Foundation (NOF). However, all treatment decisions require clinical judgment and consideration of individual patient factors, including patient preferences, comorbidities, previous drug use, risk factors not captured in the FRAX model (e.g., frailty, falls, vitamin D deficiency, increased bone turnover, interval significant decline in bone density) and possible under or overestimation of fracture risk by FRAX. The patient should follow a healthful lifestyle (good nutrition with adequate calcium and vitamin D, and appropriate weight-bearing exercise). Follow-Up: Consider repeating this study in 2 to 3 years to reassess this patient's status, or sooner if there is some new clinical indication. Reported by: STEPHANIE HUYNH M.D. on 05/10/2023 10:36:00 AM.
== END ==
PROVIDERS: PCP Nurse Practitioner; Referring Provider Nurse Practitioner; Visit Provider Nurse Practitioner
DX: M85.851 Other specified disorders of bone density and structure, right thigh (principal); Z78.0 Asymptomatic menopausal state; I10 Essential (primary) hypertension
CPT/HCPCS: 77080; 93005

== ENCOUNTER → 2023-07-02 06:47 | Outpatient (CLI) | payer OTHER, SELFPAY ==
[2020-03-04 11:43] VITALS: BMI 30.2
--- NOTE | 2023-07-02 06:48 | DI.ECHO.S_ITS ---
[facility]---------+ [facility] +---------+ : : [address] : [place] : : : : [id number] : : : : Phone: [phone]---------+ Echocardiogram Report + + :Name: GARETH FERNANDES Study Date: 07/02/2023 Height: 67 in : :[facility] ReadingLocation: Weight: 170 lb : : Gender: Female BSA: 1.9 m2 : :: 1955 Age: 67 yrs BP: 152/97 mmHg: :Reason For Study: ESSENTIAL HYPERTENSION : :Ordering Physician: ANDERSON, : :TRISTAN Performed By: Randall Pena : :Referring: TRISTAN BARRON : + + Interpretation Summary Normal both left and right ventricle size and function. The ejection fraction is estimated to be 55-60%. No significant valvular abnormality. The ascending aorta is mildly enlarged. Procedure: A two-dimensional transthoracic echocardiogram with color flow and Doppler was performed. The study quality was technically adequate. There is no prior echocardiogram noted for this patient. The patient was in normal sinus rhythm during the exam. The heart rate ranged between 62-70 bpm during the study. Left Ventricle: The left ventricle is normal in size and wall thickness. The ejection fraction is estimated to be 55-60%. There are no focal wall motion abnormalities. Diastolic parameters suggest probable normal left ventricular diastolic function and normal filling pressures. Right Ventricle: The right ventricle is normal in size and function. The right ventricular systolic function is normal. Atria: The left atrial size is normal. Right atrial size is normal. Mitral Valve: The mitral valve is normal in structure and function. There is no mitral valve stenosis. There is trace mitral regurgitation. Aortic Valve: The aortic valve is not well visualized. There is no aortic valve stenosis. There is trace aortic regurgitation. Tricuspid Valve: The tricuspid valve is not well visualized. There is no tricuspid stenosis. There is a trace or physiologic amount of tricuspid regurgitation. Pulmonic Valve: The pulmonic valve is normal in structure and function. There is no pulmonic valvular stenosis. There is no pulmonic valvular regurgitation. Great Vessels: The aortic root is normal size. The ascending aorta is mildly enlarged. The IVC is of normal diameter and collapses greater than 50% with a sniff. This suggests a low right atrial pressure of 3 mm Hg. Pericardium/ Pleura There is no pericardial effusion. There is no pleural effusion. MMode/2D Measurements & Calculations LVIDd: 4.8 cm LVOT diam: 2.2 cm LVIDs: 3.4 cm Ao root diam: 3.3 cm FS: 29.2 % asc Aorta Diam: 3.7 cm IVSd: 1.00 cm LVPWd: 0.83 cm LV reyes. diameter/BSA (cm/m^2): 2.6 LV sys. diameter/BSA (cm/m^2): 1.8 LA A2 area: 14.0 cm2 RA long axis: 4.4 cm LA A4 area: 13.0 cm2 RA area: 13.5 cm2 LA length (vol): 4.3 cm RA vol: 34.8 ml LA vol: 36.0 ml RA : 18.4 ml/m2 LA vol index: 19.1 ml/m2 IVC diam: 2.3 cm RVD1 (basal): 3.6 cm RVD2 (mid): 3.0 cm TAPSE: 3.1 cm Doppler Measurements & Calculations Ao V2 max: 126.1 cm/sec LVOT Max Jelani: 95.4 cm/sec Ao V2 mean: 88.1 cm/sec LV V1 max P.6 mmHg Ao max P.4 mmHg LV V1 VTI: 24.4 cm Ao mean P.4 mmHg ANA LAURA(I,D): 3.0 cm2 Ao V2 VTI: 30.9 cm ANA LAURA(V,D): 2.8 cm2 sev ratio: 0.79 ANA LAURA indexed to BSA (cm^2/m^2): 1.6 MV E max jelani: 72.1 cm/sec PA V2 max: 108.5 cm/sec MV A max jelani: 83.5 cm/sec PA V2 mean: 83.1 cm/sec MV E/A: 0.86 PA mean P.9 mmHg Med Peak E' Jelani: 5.4 cm/sec PA pr(Accel): 20.8 mmHg E/E' med: 13.3 Lat Peak E' Jelani: 10.1 cm/sec E/E' lat: 7.1 E/e' average: 10.2 MV dec time: 0.25 sec SV(LVOT): 91.7 ml Electronically signed by: Nely Dobson on Reading Physician:07/02/2023 08:58 AM
== END ==
LOC: ECHO 06:47
PROVIDERS: PCP Nurse Practitioner; Referring Provider Nurse Practitioner; Visit Provider Nurse Practitioner
DX: I77.89 Other specified disorders of arteries and arterioles (principal); I10 Essential (primary) hypertension
CPT/HCPCS: 93306

== ENCOUNTER → 2023-08-22 10:40 | Outpatient (CLI) | payer OTHER, SELFPAY ==
[2020-03-04 11:43] VITALS: BMI 30.2
[2023-08-22 12:25] LABS: Add Manual Diff / Slide Review NO; Basophils Absolute Auto 100 /uL (0-100); Basophils Percent Auto 1.3 % (0-2); Eosinophils Absolute Auto 400 /uL (0-450); Eosinophils Percent Auto 7.4 % (2-4); Hemoglobin 13.9 g/dL (12.0-16.0); Lymphocytes Absolute Auto 1700 /uL (1100-4500); Lymphocytes Percent Auto 34.6 % (25-40); Mean Corpuscular HGB Conc 34.8 % (30-36); Mean Corpuscular Hemoglobin 31.2 PG (26-34); Mean Corpuscular Volume 89.9 fL (80-100); Monocytes Absolute Auto 400 /uL (0-900); Monocytes Percent Auto 8.7 % (3-14); Neutrophils Absolute Auto 2400 /uL (1500-7000); Platelet Count 228 X10^3/uL (150-400); Red Blood Cell Count 4.45 X10^6/uL (4.0-5.2); Red Cell Distribution Width 12.6 % (11.6-14.8); White Blood Cell Count 4.9 X10^3/uL (4.5-11.0)
[2023-08-22 12:26] LABS: Appearance Urine UA CLEAR; Bilirubin Urine UA NEGATIVE (NEGATIVE); Color Urine UA YELLOW; Glucose Urine UA NEGATIVE (Negative); Ketones Urine UA NEGATIVE (NEGATIVE); Leukocyte Esterase Urine UA NEGATIVE (NEGATIVE); Nitrite Urine UA NEGATIVE (Negative); Occult Blood Urine UA NEGATIVE (Negative); Protein Urine UA NEGATIVE (Negative); Specific Gravity Urine UA 1.015 (1.000-1.035); Urobilinogen Urine UA 0.2 E.U./dL (0.2); pH Urine UA 5.5 (4.5-8.0)
[2023-08-22 12:27] LABS: Urine Volume 10mL (spun)
[2023-08-22 12:31] LABS: Bacteria Urine None Seen; Culture Indicated Urine Cult Not Indicated; RBC Urine None Seen (0-5/HPF); Squamous Epithelial Cell Urine 1-5 /HPF (0-5/HPF); WBC Urine None Seen (0-5/HPF)
[2023-08-22 12:42] LABS: BUN Creatinine Ratio 21.7 (6-22); Blood Urea Nitrogen 13 mg/dL (7-17); Calcium 9.6 mg/dL (8.4-10.2); Carbon Dioxide 30 mmol/L (22-32); Chloride 105 mmol/L (98-107); Estimated Glomerular Filt Rate > 60 mL/min (>60); Glucose 101 mg/dL (80-110); HEMOLYSIS < 15 (0-50); Potassium 4.4 mmol/L (3.4-5.1); Sodium 138 mmol/L (137-145)
== END ==
PROVIDERS: PCP Nurse Practitioner; Referring Provider Orthopaedic Surgery; Visit Provider Orthopaedic Surgery
DX: Z01.812 Encounter for preprocedural laboratory examination (principal); R73.9 Hyperglycemia, unspecified; M25.562 Pain in left knee; N39.0 Urinary tract infection, site not specified
CPT/HCPCS: 36415; 80048; 81001; 83036; 85025

== ENCOUNTER → 2023-10-08 11:13 | Outpatient (CLI) | payer OTHER, SELFPAY ==
[2020-03-04 11:43] VITALS: BMI 30.2
--- NOTE | 2023-10-08 11:14 | DI.RAD.S_ITS ---
PROCEDURE: XR CHEST 2V INDICATIONS: productive cough, COPD TECHNIQUE: 2 views of the chest were acquired. COMPARISON: [facility], CR, XR CHEST 2V, 04/18/2021, 11:05. FINDINGS: Surgical changes and devices: None. Lungs and pleura: Lungs are clear. No pleural effusions or pneumothorax. Mediastinum: Mediastinal contours are normal. Heart size is normal. Bones and chest wall: No suspicious bony abnormalities. Soft tissues appear unremarkable. IMPRESSION: No acute pulmonary process. Dictated by: Amira Rucker M.D. on 10/08/2023 at 11:34 Approved by: Amira Rucker M.D. on 10/08/2023 at 11:34
== END ==
PROVIDERS: Family Provider Orthopaedic Surgery; PCP Nurse Practitioner; Referring Provider Nurse Practitioner; Visit Provider Nurse Practitioner
DX: J44.9 Chronic obstructive pulmonary disease, unspecified (principal); R05.8 Other specified cough
CPT/HCPCS: 71046

== ENCOUNTER → 2023-10-30 13:23 | Outpatient (CLI) | payer OTHER, SELFPAY ==
[2020-03-04 11:43] VITALS: BMI 30.2
--- NOTE | 2023-10-30 13:26 | DI.MG.S_ITS ---
BILATERAL DIGITAL DIAGNOSTIC MAMMOGRAM 3D/2D: 10/30/2023 CLINICAL: Intermittent pain in right breast. Comparison is made to exams dated: 01/25/2023 mammogram and 09/29/2016 mammogram - [facility]. Both breasts are almost entirely fatty (category a/<25% glandular tissue). No significant masses, calcifications, or other findings are seen in either breast. Specifically, no finding to explain the patient's pain. Mammograms are otherwise stable. IMPRESSION: INCOMPLETE: NEEDS ADDITIONAL IMAGING EVALUATION Bilateral mammograms are stable. There is no abnormality seen in the right axilla to correspond with the pain in the right axilla. Ultrasound is recommended for full evaluation of this area. This was performed immediately following this exam. Based on the Tyrer Cuzick model (a risk assessment model) the patient's lifetime risk is 2.2% and her 10 year risk is 1.3%. According to the ACR, ACS, and NCCN guidelines, an annual breast MRI exam along with mammogram is recommended if the patient's lifetime risk is 20% or greater. This exam was interpreted at Station ID: [id number]. NOTE: For mammograms, a report in lay terms will be sent to the patient. Approximately 15% of breast malignancies will not be visualized mammographically. In the management of a palpable breast mass, a negative mammogram must not discourage biopsy of a clinically suspicious lesion. Electronically Signed By: Ernestine pedro/:10/30/2023 14:04:11 ACR BI-RADS Category 0: Incomplete [id number]
--- NOTE | 2023-10-30 13:26 | DI.US.S_ITS ---
ULTRASOUND OF RIGHT AXILLA: 10/30/2023 CLINICAL: Rt axillary pain x 6 months. Comparison is made to exams dated: 10/30/2023 mammogram, 01/25/2023 mammogram, and 09/29/2016 mammogram - [facility]. Real-time ultrasound of the right axilla was performed. Pascual scale images of the real-time examination were reviewed. No significant abnormalities were seen sonographically in the right axilla. Specifically, no finding to explain the patient's pain. IMPRESSION: NEGATIVE There is no sonographic correlate to the patient's pain and no evidence of malignancy. Return to annual mammogram screening schedule is recommended. Findings and recommendations were conveyed to the patient at time of exam. This exam was interpreted at Station ID: [id number]. Electronically Signed By: Ernestine pedro/:10/30/2023 14:22:42 letter sent: Normal Exam Ultrasound BI-RADS: 1 Negative
== END ==
PROVIDERS: Family Provider Orthopaedic Surgery; PCP Nurse Practitioner; Referring Provider Nurse Practitioner; Visit Provider Nurse Practitioner
DX: R92.2 Inconclusive mammogram (principal); N64.4 Mastodynia; M79.621 Pain in right upper arm; R92.313 Mammographic fatty tissue density, bilateral breasts
CPT/HCPCS: 76882; 77066; G0279

== ENCOUNTER 2023-11-07 12:36 | Day surgery (SDC) | payer OTHER, SELFPAY ==
[2020-03-04 11:43] VITALS: BMI 30.2
[2023-10-31 08:51] VITALS: BMI 28.0
[2023-11-07] VITALS (12 sets, daily range): BP systolic 124–144; BP diastolic 58–75; PULSE 71–91; RESP 12–18; TEMP 36.3–36.8; O2SAT 93–98; BMI 28.8
--- NOTE | 2023-11-07 06:00 | DI.RAD.S_ITS ---
PROCEDURE: XR KNEE LT 1TO2V INDICATIONS: TKA TECHNIQUE: 2 views of the knee were acquired. COMPARISON: None. FINDINGS: Bones: Knee arthroplasty in place. No displaced fracture or dislocation. Soft tissues: Postsurgical soft tissue changes. Vascular calcifications. IMPRESSION: Expected postsurgical appearance of the knee arthroplasty. Dictated by: Isidro King M.D. on 11/07/2023 at 20:12 Approved by: Isidro King M.D. on 11/07/2023 at 20:13
[2023-11-07] MEDS: LACTATED RINGERS 1,000 ML 42 ML IV ×2 (13:06→18:22)
[2023-11-07] MEDS: CELECOXIB 200 MG CAPSULE 400 MG PO (13:06)
[2023-11-07] MEDS: ACETAMINOPHEN 325 MG TABLET 975 MG PO (13:32)
[2023-11-07] MEDS: ALBUTEROL/IPRATROPIUM 3 ML AMPUL INH (14:07)
[2023-11-07] MEDS: VANCOMYCIN 1,000 MG/200 ML PIGGYBACK 200 MG IV (14:34)
--- NOTE | 2023-11-07 16:12 | PM.PREOP ---
Pre-operative Note Interval Note History & Physical reviewed/Exam performed by Physician: Yes Changes to H&P: No
--- NOTE | 2023-11-07 16:13 | P.OP_ITS ---
Operative Date/Time/Diagnoses Date of procedure: 11/07/23 Time of procedure: 16:30 Pre-op diagnosis: Severe left knee OA Post-op diagnosis: same Procedure & Clinicians Procedure: Left total knee arthroplasty Same procedure as scheduled: Yes Indications: The patient has had progressively worsening left knee pain with radiographic changes consistent with arthritis. Non-operative management has failed and the patient has requested total knee replacement. The risks, benefits and alternatives to surgery were discussed with the patient prior to proceeding. Risks discussed included, but were not limited to, failure to relieve pain, stiffness, infection, nerve damage, deep venous thrombosis, pulmonary embolism, stroke, coma, heart attack, permanent paralysis and , as well as the potential need for eventual revision of the prosthetic. Surgeon: Makenzie Perez Registered Radiographer: Danny Mg Anesthesia Type: General and Spinal Operative Notes Findings: Severe left hip OA, adequate bone, adequate stability Closure Type: primary Specimen(s): none sent Prosthetic devices, grafts, tissues, transplants, or devices: Perez and nephew R3 54 cup, neutral poly liner,two 6.5 mm screws, polar cemented stem size 3,-3 by 36 Oxinium head Estimated Blood Loss (mL): 250 Blood products transfused: none Procedure in detail: The patient was brought to the operating room. Patient was carefully positioned in the supine position. Time-out was performed and antibiotics were given. Anesthesia was induced. She was positioned in the on the table in order to allow hyperextension of the hip. The right lower extremity was prepped and draped in a standard sterile fashion. An anterior right hip incision was made 1 fingerbreadth lateral to the anterior superior iliac spine and extended distally towards the greater trochanter. Dissection was carried out through skin and subcutaneous tissues. Superficial hemostasis was achieved. The fascia over the tensor fascia naeem was defined and incised with a knife. Two Allis clamps were used to grasp the fascia. Tensor fascia naeem was retracted laterally. A gelpi retractor was placed. Dissection was carried out down along the neck. The circumflex vessels were carefully identified and cauterized with the Aqua Mantis. A PA was used during the procedure was essential for intraoperative retraction and safe implantation of the components. There was good visualization of the femoral neck. A Cobra was placed superior to the neck and the gluteus fibers were carefully stripped from that superior aspect of the capsule. A 2nd retractor was placed along the inferior aspect of the neck. The rectus insertion along the capsule was partially released. A 3rd retractor that was then gently placed over the rim of the acetabulum under the rectus. Capsule was carefully incised and released from the intertrochanteric line circumferentially superior to the mid sagittal line and inferiorly to the mid sagittal line until the lesser trochanter was palpable. A tag stitch was placed both in the superior and inferior limb of the capsular insertion. Along the acetabulum capsule was also released up to the mid sagittal 12:00 position. A portion of the labrum was resected. A saw was used to perform an osteotomy at the level of the intertrochanteric line and the junction of the superior femoral neck leaving approximately 1 finger breath of residual inferior neck above the lesser trochanter. A 2nd cut was made along the femoral neck at the base of the head and a napkin ring of neck was removed. There was severe synovitis and severe osteophyte formation in the hip. Had release a synovium and part of the capsule and removed multiple osteophytes in order to remove the femoral head. Corkscrew was placed in the femoral head and the head was removed without difficulty. Retractors were then repositioned around the acetabulum. Residual labrum was resected and additional osteophytes were removed. A reamer that was 4 mm below the templated size was placed by hand in the acetabulum and it was reamed to centralize the acetabulum. It was then reamed up to 2 under the templated size and fluoroscopy was brought in to confirm the position of the reaming and depth of reaming. I reamed 1 under the anticipated size. A trial cup was placed and noted that it was appropriately sized and fluoroscopy confirmed position and depth. The component was open and inserted without difficulty fluoroscopic imaging was used to confirm that the cup had been adequately seated and was well positioned. It was stabilized with2 screws as she had very soft bone. Neutral poly liner was placed. The cup was tested and noted to be stable. Attention was then directed to the femur. The femur was gently hyperextended additional capsular release was performed as needed in order to allow adequate visualization of the proximal femur with elevation of the femur. Patient was placed in a hyperextended slightly adducted position with maximum external rotation. Box osteotome was used to check for any residual neck as well as sclerotic bone along the trochanter. [place] pepper was placed in the femur. Additional broaching was performed. Canal finder was used to determine the alignment of the canal and position. Size 1 broach was placed. The canal was then appropriately broached up to the templated size as long as there was adequate stability of the broach and serial advancement of the broach without excessive impingement. Specific attention was directed at avoiding varus attempting to direct the distal aspect of the broach more anteriorly and avoiding excessive anteversion. Trial reduction showed acceptable range of motion, good stability, no posterior impingement, hoahaoism of leg length and appropriate lateral shuck. I also hyperflexed the hip and checked that there was no impingement anteriorly and there was good stability with flexion, adduction and internal rotation. We carefully checked the stem overall. She has a long-stem related to a revision knee prosthesis and in order to avoid a stress riser plan was to cement her femoral hip stem in addition to doing an anterior approach to optimize her stability. I reamed down to the tibial femoral stem using flexible reamers. We then carefully mixed the cement and cleaned the bone he is pulse lavage whistle tip suction and vaginal packing in order to optimize cementing technique. Marcaine and Exparel were injected. The stem was placed without difficulty. The cement was carefully cleaned and cleared. Repeat trial reduction and x-ray showed acceptable overall position, length, and no evidence of the femoral fracture. Final head was placed. Wound was meticulously irrigated with normal saline. The hip was reduced and additional Exparel and Marcaine were injected. The capsule was closed with interrupted nonabsorbable sutures. The fascia of the tensor was closed with interrupted and running Vicryl. No drain was placed. Any tensor fascia naeem muscle that appeared to be contused or injured which was a minimal amount was carefully resected. Capsule around the tensor was injected with Exparel and Marcaine. The skin was closed with barbed stitches for the subcutaneous tissue and skin. We also used surgical glue. The wound was dressed sterilely. Brief Betadine soak was also used and was meticulously irrigated with normal saline. Patient was transferred to recovery room in satisfactory c ondition. Complications: none Post-operative Condition: stable Disposition: Acute Care Plan for aftercare: The patient will be maintained on a standard total hip replacement protocol with weight bearing as tolerated and anterior hip precautions. The patient will receive Aspirin and sequential compression devices for DVT prophylaxis. The patient will be discharged home when safe for the home environment.
--- NOTE | 2023-11-07 16:25 | PM.PREOP ---
Pre-operative Note Interval Note History & Physical reviewed/Exam performed by Physician: Yes Changes to H&P: No
--- NOTE | 2023-11-07 16:25 | PM.OP.1 ---
Operative Date/Time/Diagnoses Date of procedure: 11/07/23 Time of procedure: 16:30 Pre-op diagnosis: Severe left knee OA Post-op diagnosis: same Procedure & Clinicians Procedure: Left total knee arthroplasty Same procedure as scheduled: Yes Indications: The patient has had progressively worsening left knee pain with radiographic changes consistent with arthritis. Non-operative management has failed and the patient has requested total knee replacement. The risks, benefits and alternatives to surgery were discussed with the patient prior to proceeding. Risks discussed included, but were not limited to, failure to relieve pain, stiffness, infection, nerve damage, deep venous thrombosis, pulmonary embolism, stroke, coma, heart attack, permanent paralysis and , as well as the potential need for eventual revision of the prosthetic. Surgeon: Makenzie Perez Equipment Maintenance Superintendent: Danny Mg Anesthesia Type: General and Spinal Operative Notes Findings: Severe left knee OA, adequate stability, adequate bone Closure Type: primary Specimen(s): none sent Prosthetic devices, grafts, tissues, transplants, or devices: Perez and nephew ethanney BCS 2 size 5 femur, size 3, +9, 32 x 7.5 mm patella Estimated Blood Loss (mL): 250 Blood products transfused: none Tourniquet time (min): 83 Procedure in detail: The patient was seen in the pre-operative area, where the patient identified the left knee as the operative site and this was marked with my initials. The patient received pre-operative antibiotics, and was taken to the operating room and placed on the operative table in the supine position. After satisfactory anesthesia, a registered physical therapist out was performed. The left leg was encircled with a tourniquet about the proximal thigh, and the leg was prepared from the toes to the tourniquet with ChloroPrep in the usual fashion and draped through sterile drapes. The leg was elevated and exsanguinated with Eschmark bandage and the tourniquet inflated to [250] mmHg pressure. A PA was used during the procedure was essential for intraoperative retraction and safe implantation of the components. The knee was approached through an approximately 18 cm incision centered over the patella and carried into the knee through a medial parapatellar arthrotomy. Portion of the medial and lateral meniscus was resected. Soft tissue was carefully mobilized around the patella the patella was measured with a caliper. Bone was resected from the patella and the patellar height was reconstituted with up an appropriate sized patellar component. A cover was then placed on the patella. A small amount of additional medial and lateral meniscus was resected. Pins were placed for Cori navigation. The femur and the tibia was meticulously mapped and a plan was taken and developed. The robotic assisted Cori bur was used for the distal femoral resection. It looked like an appropriate distal femoral cut and the cut was made without difficulty. The rotation was assessed and the appropriate size femoral guide was placed on the distal femur and finishing cuts were made. There was no evidence of notching. The anterior, posterior and chamfer cuts were then made. The posterior osteophytes and soft tissues were then removed. The posterior capsule was injected with part of a mixture of 60 ml 0.25% Marcaine mixed with 20 ml Exparel for post operative pain control. The remainder of this mixture was injected into the capsule and subcutaneous tissues during cement curing. The tibial guide was meticulously navigated. It is carefully pinned to the tibia. The cut was made without difficulty. The rotation was assessed. The patient was placed in extension residual medial and lateral meniscus as well as any residual bone was carefully resected. [No] additional tibia was resected. Hemostasis was achieved especially posteriorly. Additional local was injected into the posterior capsule. The femoral component trial was placed and the notch was finished. Trial tibial and femoral components were then placed and the knee placed through a range of motion. Range of motion was [0-130], with good stability throughout the range. The trials were then removed, and the tibia was finished. The bone was prepared with pulsatile lavage, and dried with a sponge. Cement was applied and the final prosthetics placed. Excess cement was removed during and after cement curing. A brief Betadine soak was performed. After confirming there was no extruded cement posteriorly, the final tibial insert was placed. The knee was copiously irrigated and the tourniquet deflated. Hemostasis was obtained with the Bovie cautery. The capsule was closed with interrupted # 1 suture. The subcutaneous layer was closed with barbed sutures, and the skin with a running 3-0 V-Lock suture and Surgical glue. An Aquacel Ag dressing was applied and the patient was taken to recovery having tolerated the procedure well. Complications: none Post-operative Condition: stable Disposition: Acute Care Plan for aftercare: The patient will be maintained on a standard total knee replacement protocol with weight bearing as tolerated. The patient will receive aspirin and sequential compression devices for DVT prophylaxis. The patient will be discharged home when safe for the home environment.
[2023-11-07] MEDS: CEFAZOLIN 2 GM/100 ML PREMIX 100 ML IV (16:55)
[2023-11-07] MEDS: TRANEXAMIC ACID 1,000 MG VIAL 1000 MG INJ ×2 (17:00→18:35)
--- NOTE | 2023-11-07 17:17 | SUR.OPER ---
Supine on padded OR bed. Pillow under head, arms secured on padded armboards <90 degree abduction. Safety belt across torso. Non-operative leg secured with tape over blanket over lower leg. Operative leg secured in DeMayo positioner. Foam padded brace at thigh of operative leg.
[2023-11-07] MEDS: BUPIVACAINE 0.25% (PF) 60 ML, EPINEPHrine 0.3 MG INJ (17:23)
[2023-11-07] MEDS: BUPIVACAINE LIPOSOME 266 MG/20 ML VIAL INJ (17:24)
[2023-11-07] MEDS: LACTATED RINGERS 1,000 ML 100 ML IV (19:45)
[2023-11-07] MEDS: lisinopriL 20 MG TABLET PO (21:00)
[2023-11-07] MEDS: IBUPROFEN 400 MG TABLET PO (21:14)
[2023-11-07] MEDS: PHENYTOIN ER 100 MG CAPSULE PO (21:14)
[2023-11-07] MEDS: ACETAMINOPHEN 325 MG TABLET 650 MG PO (21:14)
[2023-11-07] MEDS: ASPIRIN EC 81 MG TABLET PO (21:15)
[2023-11-07] MEDS: DOCUSATE 100 MG CAPSULE PO (21:16)
[2023-11-08] MEDS: CEFAZOLIN 2 GM/100 ML PREMIX 100 ML IV ×2 (02:38→11:28)
[2023-11-08 02:40] VITALS: BP 112/56; PULSE 67; RESP 16; TEMP 36.4; O2SAT 95
[2023-11-08] MEDS: IBUPROFEN 400 MG TABLET PO (05:22)
[2023-11-08] MEDS: PHENYTOIN ER 100 MG CAPSULE PO (05:22)
[2023-11-08] MEDS: ACETAMINOPHEN 325 MG TABLET 650 MG PO ×2 (05:22→11:31)
[2023-11-08 06:05] LABS: Hematocrit 36.7 % (36-46); Hemoglobin 12.7 g/dL (12.0-16.0)
[2023-11-08 09:00] VITALS: BP 117/64; PULSE 68; RESP 16; TEMP 36.2; O2SAT 99
[2023-11-08] MEDS: ASPIRIN EC 81 MG TABLET PO (09:24)
[2023-11-08] MEDS: DOCUSATE 100 MG CAPSULE PO (09:24)
[2023-11-08] MEDS: lisinopriL 20 MG TABLET PO (09:24)
[2023-11-08] MEDS: ATORVASTATIN 20 MG TABLET 40 MG PO (09:24)
--- NOTE | 2023-11-08 09:58 | PM.DS.1 ---
History of Present Illness History of Present Illness Date Patient Seen: 11/08/23 Time Patient Seen: 09:58 Chief complaint: Left Total Knee Arthroplasty - Robot Narrative: Operative Date/Time/Diagnoses Date of procedure: 11/07/23 Time of procedure: 16:30 Pre-op diagnosis: Severe left knee OA Post-op diagnosis: same Procedure & Clinicians Procedure: Left total knee arthroplasty Same procedure as scheduled: Yes Indications: The patient has had progressively worsening left knee pain with radiographic changes consistent with arthritis. Non-operative management has failed and the patient has requested total knee replacement. The risks, benefits and alternatives to surgery were discussed with the patient prior to proceeding. Risks discussed included, but were not limited to, failure to relieve pain, stiffness, infection, nerve damage, deep venous thrombosis, pulmonary embolism, stroke, coma, heart attack, permanent paralysis and , as well as the potential need for eventual revision of the prosthetic. Surgeon: Makenzie Perez Biometrics Analyst: Danny Mg Anesthesia Type: General and Spinal Operative Notes Findings: Severe left knee OA, adequate stability, adequate bone Closure Type: primary Specimen(s): none sent Prosthetic devices, grafts, tissues, transplants, or devices: Perez and nephew ethanney BCS 2 size 5 femur, size 3, +9, 32 x 7.5 mm patella Estimated Blood Loss (mL): 250 Blood products transfused: none Tourniquet time (min): 83 Discharge Providers Provider Discharge Date: 11/08/23 Primary care physician: CHARLIE Whelan Consults: 11/07/23 06:00 Consult to Anesthesiology Routine Comment: Consulting Provider: Anesthesiologist Reason for consultation: Regional block for post operative pain control Has provider been notified: No 11/07/23 19:52 Consult to Discharge Planning Routine Comment: Consult to Occupational Therapy Evaluate & Treat Comment: Physician Instructions: Evaluate and treat Consult to Physical Therapy Evaluate & Treat Comment: Physician Instructions: postop TKA protocol Discharge provider: Janie Mcclure PA-C Summary Hospital Course Discharge Diagnosis: Left knee osteoarthritis, s/p left total knee arthroplasty Hospital Course: Ms Lopez's hospital course was unremarkable. On the morning of POD# 1, she was feeling well and wanted to go home. She was eating and voiding without difficulty and reports no issues when working w/ PT. Her pain was well-controlled with oral medication. Exam Vital Signs (past 8 hours): - 11/08/23 02:40 Temperature 97.6 F Pulse Rate 67 Respiratory Rate 16 Blood Pressure 112/56 L Pulse Oximetry 95 Oxygen Delivery Method Room Air Oxygen Flow Rate 0 Narrative Exam Narrative: 5/5 strength in hip flexors, quadriceps, hamstrings, DF, PF, EHL on left. Sensation to light touch still intact in LLE. Calf soft and compressible. ALEXIS functioning, WING over ALEXIS CDI. Objective Labs 11/08/23 05:30 Labs: Laboratory Results - last 24 hr 11/08/23 05:30 Hgb 12.7 Hct 36.7 PFSH Medical History (Updated 10/31/23 @ 09:14 by Barb Hill RN) History of COVID-19 (~2020) Esophageal dilatation Stress incontinence Tobacco dependence due to cigarettes, in remission Arguello's cyst of knee Left knee pain Restrictive airway disease Mixed hyperlipidemia COPD with exacerbation COPD (chronic obstructive pulmonary disease) Bilateral wheezing Breath shortness GERD (gastroesophageal reflux disease) Urinary incontinence Seizure (1979) Hypertension Restless leg syndrome Depression (1998) Surgical History (Updated 11/08/23 @ 10:06 by Janie Mcclure PA-C) Hx of colonoscopy Family History Father Heart disease Essential hypertension Hyperlipidemia Mother Alzheimer disease Social History household members: spouse Smoking Status: Former smoker alcohol intake: current Discharge Assessment & Plan Assessment and Plan Assessment: Left knee osteoarthritis, s/p left total knee arthroplasty Plan of Treatment: Discharge home, multimodal pain control, outpt PT, ASA 81mg BID x 6 weeks for VTE prophylaxis, f/u in office in 2 weeks as scheduled. Discharge Plan Discharge Plan Patient Disposition: Home Discharge orders & Medications Discharge Orders: Discharge (Order); Ordered 11/08/23 Ordered By: Janie Mcclure Prescriptions: New oxycodone 5 mg Tablet 5 mg PO Q4-6H PRN (Reason: Pain, Moderate (4-6)) Qty: 30 0RF aspirin 81 mg Tablet,Delayed Release (Dr/Ec) 81 mg PO BID Qty: 90 0RF ibuprofen 400 mg Tablet 400 mg PO Q4H PRN (Reason: Pain, Mild (1-3)) Qty: 120 0RF polyethylene glycol 3350 17 gram Powder In Packet 17 g PO DAILY PRN (Reason: Constipation) Qty: 100 0RF acetaminophen 325 mg Tablet 650 mg PO Q6H PRN (Reason: Fever/Mild Pain (1-3)) Qty: 240 0RF ondansetron 4 mg Tablet,Disintegrating 4 mg PO Q6HR Qty: 20 0RF Continued rosuvastatin 20 mg tablet See Rx Instructions .ROUTE .COMPLEX Qty: 90 3RF Dose Instruction: TAKE 1 TABLET(20 MG) BY MOUTH DAILY FOR CHOLESTEROL Rx Instructions: TAKE 1 TABLET(20 MG) BY MOUTH DAILY FOR CHOLESTEROL lisinopril 20 mg tablet See Rx Instructions .ROUTE .COMPLEX Qty: 90 3RF Dose Instruction: TAKE 1 TABLET BY MOUTH DAILY Rx Instructions: TAKE 1 TABLET BY MOUTH DAILY phenytoin sodium extended 100 mg capsule See Rx Instructions .ROUTE .COMPLEX Qty: 270 3RF Dose Instruction: TAKE 1 CAPSULE BY MOUTH THREE TIMES DAILY Patient Comments: Pt states she takes all 3 tabs together once a day Rx Instructions: TAKE 1 CAPSULE BY MOUTH THREE TIMES DAILY albuterol sulfate [Ventolin HFA] 90 mcg/actuation HFA aerosol inhaler 2 puff INHALATION Q6H PRN (Reason: shortness of breath or wheezing) Qty: 6.7 2RF Rx Instructions: 2 puffs inhaled every 6 hours as needed for sob, wheezing, or cough Disabled Parking Permit See Rx Instructions .ROUTE .COMPLEX Qty: 1 0RF Rx Instructions: I find this patient to be medically disabled and qualify for disabled parking as indicated and signed on the accompanying disabled parking application for individuals. fluticasone propion-salmeterol [Advair Diskus] 250-50 mcg/dose blister with device 1 inh inhalation BID Qty: 180 3RF Rx Instructions: 1 inhalation twice daily for breathing ibuprofen 200 mg Tablet 800 mg PO DAILY PRN (Reason: Pain) citalopram 40 mg tablet 80 mg PO QPM Follow up/Referrals: Aminata Santos ARNP [Primary Care Provider] - Makenzie Perez MD [Family Provider] - 11/16/23 11:30 am (Follow up w/ Roman Lewis PA-C, at [email or web address] office in [place].) Diet/Activity/Treatments Diet: Diet as Tolerated Activity: Weightbearing as tolerated. Walk frequently! Cold/Heat Therapy: Ice to knee as needed for pain. Skin/Wound/Dressing Care Report to your healthcare provider any signs of infection, such as:: chills, fever, night sweats, unusual drainage and unusual redness Dressing: May remove WING wrap and shower on 11/10/2023. Leave dressing in place until follow up in office. In 5-7 days, battery light will start flashing red, at which point you can disconnect the battery pack and dispose of it, but keep the dressing on. No bathing or otherwise soaking incision. Call the office if the dressing becomes saturated. Visit Report/Discharge Packet Instructions: DI for Knee Replacement, DI for Prescription Opioid Use Stand Alone Forms: Patient Portal/API, Surgery Discharge Discharge Data Primary Care Provider: Aminata Santos Attending Provider: Makenzie Perez VTE Deep Vein Thrombosis/Pulmonary Embolism Present on Admission: No
--- NOTE | 2023-11-08 10:17 | OT.IPNOTE ---
Pt states has no OT needs and able to answer a question about getting into the tub. NO charge.
--- NOTE | 2023-11-08 10:42 | PT.IIE ---
Addendum entered and electronically signed by Avani Murray, PT 11/08/23 13:15: PT direct supervision and direction to student PT Hernan Morris throughout session Original Note: Current Diagnoses Unilateral primary osteoarthritis, left knee (11/07/23) Presence of unspecified artificial knee joint (11/07/23) Surgery Performed Operation Date: 11/07/23 14:45 Actual Procedures p Total Knee Arthroplasty - Robot(Left) - Makenzie Perez MD Surgical History (Last Updated 10/31/23 @ 09:09 by Barb Hill RN) Hx of colonoscopy Medical History (Last Updated 10/31/23 @ 09:14 by Barb Hill RN) Arguello's cyst of knee Bilateral wheezing Breath shortness COPD (chronic obstructive pulmonary disease) COPD with exacerbation Depression (1998) Esophageal dilatation GERD (gastroesophageal reflux disease) History of COVID-19 (~2020) Hypertension Left knee pain Mixed hyperlipidemia Restless leg syndrome Restrictive airway disease Seizure (1979) Stress incontinence Tobacco dependence due to cigarettes, in remission Urinary incontinence Physical Therapy Inpatient Evaluation/Re-Eval M1 PT/OT-IP Prior Functional Status Start: 11/08/23 08:15 Freq: NEEDED Status: Active Protocol: Document 11/08/23 08:35 RUBIO (Rec: 11/08/23 10:41 RUBIO [id number]) Medical Review Prior Functional Status Medical History Reviewed Yes Diet/Fluid Consistency Regular Communication WNL Mobility and Gait I with no AD Activities of Daily Living and IADL's I with ADL's Social History Household Members spouse Living Arrangements House Number of Floors (Floors) One Floor Number of Stairs To Enter/Railing? 2 CHRIS w/B rails Home Environment High Toilet,Tub/Shower Home Equipment Front Wheel Walker,Straight Cane,Raised Toilet Seat Without Armrests,Shower Seat with Backrest Employment Status Retired Additional Social History Comment Pt has assistance from spouse at home who also retired M2 PT-IP Current Condition Start: 11/08/23 08:15 Freq: NEEDED Status: Active Protocol: Document 11/08/23 08:35 JCharmaine (Rec: 11/08/23 10:41 RUBIO [id number]) Physical Therapy Current Condition Current Condition Evaluation Date 11/08/23 Treatment Diagnosis L TKA M3 PT-IP Subjective Start: 11/08/23 08:15 Freq: NEEDED Status: Active Protocol: Document 11/08/23 08:35 JG (Rec: 11/08/23 10:41 JG [id number]) Subjective Physical Therapy Visit Type Type Initial Evaluation Visit Start Time 08:35 Visit Stop Time 09:00 Number of BUTTON PUSHER Visits 0 Physical Therapy Visit Comments Patient Comments Pt asked if it would hurt to accidently use wrong leg when ascending or desending steps Therapy Pain Assessment Pain Present Pain Present Pain Reported Location Left Lower Leg Intensity 2 Scale Used Numeric (0 - 10) Description With Movement Pain Behaviors Guarding Pain Management Techniques Re-positioning M4 PT-IP Mobility and Gait Start: 11/08/23 08:15 Freq: NEEDED Status: Active Protocol: Document 11/08/23 08:35 JG (Rec: 11/08/23 10:41 JoseG [id number]) PT-Transfer Assessment Sit to and From Stand Sit to and from Stand Independent,Use of Upper Extremities Equipment Transfer Assistive Device Gait Belt,Front Wheeled Walker Orthotic/Prosthetic Devices or Brace: No Transfers Transfer Destination Chair Transfer Technique ambulation Transfer Ability Level of Assist Independent,Use of Upper Extremities Comments Mobility Comments Pt extends L knee before performing STS Gait Assessment Gait Gait Assistance Required: Standby Assistance Distance (Feet) 200 Able to Maintain Weight Bearing Status Yes During Gait Assistive Devices Assistive Device Gait Belt,Front Wheeled Walker Orthotic/Prosthetic Devices or Brace: No Gait Deviations General Gait Pattern Decreased Stride Length, Decreased Feet Clearance, Flexed Trunk Factors Limiting Gait Function Factors Limiting Gait Function Decreased Activity Tolerance, Limited Range of Motion,Pain Comments Gait Comments Pt began gait training with a step to gait pattern using FWW . Pt was able to transition to step through gait pattern after stair training and maintained gait pattern for remainder of PT Stair Climbing Assessment Evaluation Level of Assist On Stairs Standby Assistance Devices Stair Climbing Assistive Devices Straight Cane,Right Railing Technique/Endurance Stair Climbing Direction Ascend and Descend Stair Climbing Technique Step to Step Number of Steps Climbed 3 Query Text: Stair Climbing Set # Repetitions (reps) 1 Comments Stair Climbing Comments Pt performed step to step stair training with SPC on L side and holding R railing on asending and descending stairs . Pt had small stumple on last step of descent but was able to I recover PT-Balance Assessment Sitting Balance and Reactions Static Sitting Balance Ability Normal Dynamic Sitting Balance Ability Normal Standing Balance and Reactions Static Standing Balance Ability Good Dynamic Standing Balance Ability Good Device Used FWW M5 PT-IP Objective Assessments Start: 11/08/23 08:15 Freq: NEEDED Status: Active Protocol: Document 11/08/23 08:35 JG (Rec: 11/08/23 10:41 JG [id number]) Orientation Orientation/Cognition Level of Alertness Alert Orientation Name,Age,Birthday,Month,Date, Year,Day of Week,Place, Situation Language Function Ability No Deficits Noted Safety Awareness Understands Safety Issues Memory Description No Deficits Noted Gross Range of Motion Upper Extremity ROM Impairments defer to OT Lower Extremity ROM Assessment Left Impaired Impairments dec flex/ext of knee Strength Lower Extremity Strength Assessment Left Impaired Comments Strength Comments Pt was able to activly flex/ ext L knee 3/5 strength M6 PT-IP Treatment Start: 11/08/23 08:15 Freq: NEEDED Status: Active Protocol: Document 11/08/23 08:35 JG (Rec: 11/08/23 10:41 JG [id number]) Physical Therapy Treatment Exercises Exercises Ankle Pumps Education Education Provided Precautions,Weight Bearing Status,Post-Op Packet,Safety Other Treatments Other Treatment Performed LAQ M7 PT-IP Assessment and Plan Start: 11/08/23 08:15 Freq: NEEDED Status: Active Protocol: Document 11/08/23 08:35 JG (Rec: 11/08/23 10:41 JG [id number]) PT Summary Assessment and Plan Potential Rehabilitation Potential Excellent Status of Condition at Evaluation Stable Summary Impairments Pain,ROM,Gait,Activity Tolerance Progress Towards Goals Safe For Discharge Assessment Summary Pt is a 68 y/o F that presents s/p L TKA and was I at baseline with all ADL's. Pt is requiring SBA with gait and stair training and is I with transfers. Pt used a FWW during mobility and gait and a SPC when navigating stairs. Pt's only concern is accidently using affected limb during ambulation and stairs. Pt was edu on WB procedures and what to expect with accidental use of affected limb. Pt has both AD at home and a spouse that will assist her once d/c. No further PT needed d/t pt performing well with mobility and able to recall pre-op PT education. Frequency of Treatment Frequency Of Treatment Discharge Treatment Plan Physical Therapy Treatment Plan Transfer Training,Gait Training,Therapeutic Exercise, Discharge Planning Weight Bearing Status Weight Bearing Status Weight Bear as Tolerated Recommendations To Nursing Amount of Assist Needed Standby Assistance Discharge Recommendations PT Discharge Recommendations Home with Assistance, Outpatient PT Transportation Needs at Discharge Private Vehicle
--- NOTE | 2023-11-08 11:24 | CM.DANOTE ---
Patient is a 68 yo female who was admitted [facility] on 11/07/23 for LTKA. Pt has [facility] for insurance and her PCP is Aminata Santos at [facility]. EMR was reviewed. Per Ortho PA, pt tolerated procedure well and medically stable to discharge home today. Per PT/OT, recommend home with assist and FWW and outpt PT. SW met bedside with pt and explained role and OT just completed eval and discussed final DME recommendations for showering at home. Pt confirms she lives in [place] with her and both are fairly independent and active at baseline. Pt has FWW to use at discharge and states she still drives and spouse is her DPOA. Pt denies any hx of SNF or HH and is currently established with outpt PT at [facility] with Avani. Pt confirms she feels agreeable with discharge to home today and spouse will provide transport and arrive around lunchtime and pt does not anticipate any further needs and plans to Resume her outpt PT with Avani after discharge. SW updated RN. Plan: Patient to d/c home today via spouse POV and outpt PT and no further discharge needs at this time. JOHN Mitchell Discharge Planning/Care Management CM Discharge Assessment Start: 11/08/23 11:05 Freq: Status: Active Protocol: Document 11/08/23 11:06 (Rec: 11/08/23 11:24 [id number]) Discharge Planning Assessment Assigned Battery Vent Plug Inserter JOHN Bravo DPOA/Assigned Designee Name spouse Advance Directives? No Advance Directives on File No History Provided By Patient,Medical Record Has Patient been admitted in last 30 No days? Prior Living Arrangements House Household Members spouse Type of transporation used prior to Drives own vehicle admit Independent with ADL's Yes Is patient alert and oriented? Yes Caregiver for Another No Community Services used prior to Physical Therapy admission: Comment See Avani at [facility] outpt PT DME Already Rented / Owned Elevated Toilet Seat,FWW / Walker Comment Might pickle cutter a bath bench Patient/Family Preference OP PT Therapy Comment Resuming her outpt PT Barriers to Discharge No Discharge Plan Home Community Services Physical Therapy Transportation Arrangement Spouse Referrals Initiated None needed Whiteboard Updated in Patient Room with Yes name and ext. # of Battery Vent Plug Inserter Review Status In Process Please Provide Date Initial DC 11/08/23 Assessment Was Performed Next Review Type Continued Stay Review Pre-Anesthesia Assessment Start: 10/31/23 08:51 Freq: Status: Active Protocol: Document 10/31/23 08:51 CAB (Rec: 10/31/23 09:18 CAB [id number]) Pre-Anesthesia Assessment Preferred Name Anushka Patient Information Reviewed Via Phone Assessment Assessment Completed With Patient Primary Care Provider Aminatagabrielle Santos Seen Specialist in Last 12 Months Yes Specialist Seen Orthopedist Primary Language Cymraes Preferred Language Cymraes Wrapper Layer Required No Height 167.64 cm Weight 78.925 kg Body Mass Index (BMI) 28.0 Hearing Ability Normal Visual Impairment No Limitations Visual Assist None Dentition Type Full- Upper & Lower Barriers to Learning None Hx Anesthesia Reactions Pt has not had anesthesia other than for esophageal dilation, c-scope Hx Family Anesthesia Reaction No Hx Malignant Hyperthermia No Hx Blood Transfusions No Anesthesia Review Requested No Church Official No alcohol intake current alcohol intake frequency 0-2 drinks per day Smoking Status Former smoker how long ago did patient quit smoking Quit 5-6 years ago Substance Use Type does not use Pain Present Pain Reported Musculoskeletal Symptoms Abnormal Gait,Difficulty Walking,Joint Pain,Limited Range of Motion History of Falling (Recent or History of No ) Patient is completely paralyzed or No completely immobile Mental Status Oriented to own ability Is patient on oxygen? No Does patient have MONTANO/SOB Yes: related to COPD Hx Sleep Apnea No Currently Taking a Beta Caroline No Can You Climb a Flight of Stairs Without No SOB Hx Chest Pain No Hx SOB Yes: related to COPD Hx Syncope or Dizziness No Anti-Coagulant Therapy No Has a Supervisor Paint Roller Covers No Cardiac Testing No Hx Pacemaker/ICD No Pacemaker Rep Required? No Cardiac Clearance Received No Diet Type At Home Regular Dysphagia Yes: Food gets stuck in my throat Gastrointestinal Symptoms Reflux Bladder Pattern Incontinent Urinary Catheter Present No Hx Urinary Self Catheterization No Diabetes No HgbA1C 5.0 Date 08/22/23 Patient No Lactating No Hx Drug Resistant Organism No Presence of External or Internal Medical No Devices Marital Status Lives With spouse Current Living Arrangements House Number of Floors (Floors) Two Floors Number of Stairs To Enter/Railing? 3 Support System Spouse Does the Patient Have Assistance After Yes Surgery Patient Discharge Plan Description Return Home Comment Pt advised same day surgery per surgeon Feels Safe in Current Environment Yes Been Physically Hurt or Threatened By a No Person in Current Environment Do you have thoughts of harming yourself None or others? Are you currently considering suicide? No Do you have a plan to hurt yourself or No Plan others? Do You Have Any Spiritual Beliefs That No May Affect Your HC Choices? Do You Have Any Cultural Practices That No May Affect Your HC Choices? Comment Spiritism Who Can We Speak to About Patient's Care Family, friends Identifying Code for Release of Patient Declines to issue Information Health Care Proxy/Next of Kin Nba (spouse) Health Care Proxy Emergency Contact Name Nba Lopez (spouse) Emergency Contact Advance Directives? No Power of Cellar Supervisor No PAC Instructions Do not shave/clip surgical site,Durable medical equipment ,Medications to take/avoid, Nasal antibiotic,No ETOH/ petroleum product on skin DOS, NPO,Post-op transportation,Pre -surgical wash,Sensory aids, Sturdy shoes/comfortable clothes,Do not bring valuables and remove jewelry
--- NOTE | 2023-11-08 12:32 | PC.NURSE ---
This RN did discharge teaching with the pt. Pt verbalized understanding of how to care for dressing, how to disconnect the battery pack from the ALEXIS dressing, what s/sx to watch for infection, when to remove analisa bandage and when to shower. All questions answered. Discussed all medications with the pt, how to take all medications, and possible side effects pt verbalized understanding and all questions answered.
--- NOTE | 2023-11-08 13:42 | PC.NURSE ---
Pt & spouse escorted via W/C to waiting vehicle. Discharged in stable post op status.
== END 2023-11-08 13:35 | disposition home or self-care (01) ==
LOC: OR 12:36 → AC 19:21
PROVIDERS: Family Provider Orthopaedic Surgery; PCP Nurse Practitioner; Referring Provider Orthopaedic Surgery; Visit Provider Orthopaedic Surgery
PROC: 0SRD0JZ Replacement of Left Knee Joint with Synthetic Substitute, Open Approach (ICD-10-PCS; CPT 27447; principal; 2023-11-07 14:45)
DX: M17.12 Unilateral primary osteoarthritis, left knee (principal); M25.762 Osteophyte, left knee
CPT/HCPCS: 27447; 36415; 73560; 85014; 85018; 97116; 97161; C1776; A9270; C9290; J0171; J0690; J1100; J2250; J2405; J3010

== ENCOUNTER 2025-01-25 15:43 | Observation (INO) | payer OTHER, SELFPAY ==
[2023-11-07 19:46] VITALS: BMI 28.8
[2025-01-25 15:56] VITALS: BP 142/96; PULSE 82; RESP 16; TEMP 36.7; O2SAT 94; BMI 28.2
--- NOTE | 2025-01-25 16:07 | ED_ITS ---
HPI - Skin/Abscess/Foreign Bdy General Chief complaint: Skin/Abscess/Foreign Body Stated complaint: Food Lodged in Throat Time Seen by Provider: 01/25/25 16:02 Source: patient, RN notes reviewed and old records reviewed Mode of arrival: Ambulatory Limitations: no limitations History of Present Illness HPI narrative: 69-year-old female history of hypertension, dyslipidemia, seizure disorder on phenytoin with prior esophageal food bolus with prior dilation presents with similar. Patient states she was eating some meat. She can usually get past the esophageal spasm but today seems to be stuck. She tried warm soda as well as cold showed a several times but comes right back out. States she feels like it is stuck and mid chest. This feels very similar to her prior episodes. States it happens fairly frequently but she can usually get it to pass on its own. She denies any other symptoms. Notes she has been seen here once before for similar but was transferred to [place] where she had EGD and was found to have a food bolus. This was not 2018. She takes medication for hypertension, dyslipidemia and seizure medication. She has had her regular daily medications. She states no other major surgeries. No tobacco, does have alcohol daily, no recreational drugs. Denies any drug allergies. Related Data Previous Rx's ?Medication ?Instructions ?Recorded albuterol sulfate 90 mcg/actuation 2 puff inhalation Q 6H PRN 02/08/23 aerosol inhaler (Ventolin HFA) shortness of breath or wheezing #6.7 grams fluticasone 250 mcg-salmeterol 50 1 inh inhalation BID #180 ea 06/11/23 mcg/dose blistr powdr for inhalation (Advair Diskus) Disabled Parking Permit See Rx Instructions .Route 0 10/08/23 .COMPLEX #1 unit phenytoin sodium extended 100 mg 100 mg PO TID #270 ca ps 08/21/24 capsule citalopram 40 mg tablet 80 mg (2 x 40 mg) PO QPM for 10/01/24 depressive disorder #180 tabs olmesartan 20 mg tablet 20 mg PO DAILY #90 tabs 11/06 05/31 rosuvastatin 20 mg tablet See Rx Instructions .Route 0 12/26/24 .COMPLEX #90 tabs Allergies Allergy/AdvReac Type Severity Reaction Status Date / Time lisinopril AdvReac Intermediate Cough Verified 01/25/25 15:56 Review of Systems Review of Systems ROS Unobtainable: All systems reviewed & are unremarkable except as noted in HPI and below Patient History Medical History Ganglion cyst of both hands Tobacco use disorder, mild, in early remission History of COVID-19 (~2020) Esophageal dilatation Stress incontinence Arguello's cyst of knee Left knee pain Restrictive airway disease Mixed hyperlipidemia COPD with exacerbation COPD (chronic obstructive pulmonary disease) Bilateral wheezing Breath shortness GERD (gastroesophageal reflux disease) Urinary incontinence Seizure (1979) Hypertension Restless leg syndrome Depression (1998) Surgical History Hx of colonoscopy Family History Father Heart disease Essential hypertension Hyperlipidemia Mother Alzheimer disease Social History household members: spouse Smoking Status: Former smoker alcohol intake: current Smoking Status: Former smoker alcohol intake frequency: 0-2 drinks per day Exam Narrative Exam Narrative: GEN: well nourished, well appearing female, alert and oriented x 3, patient appears to be in moderate distress. HEENT: Atraumatic, pupils are equal round reactive to light, extraocular movements are intact, nares are clear, there is no conjunctival pallor. Throat is clear without any exudates, erythema, tonsillar enlargement or uvular deviation, no stridor HEART: Regular rate and rhythm without murmur, clicks, rubs. LUNGS:Lungs clear to auscultation, no wheezes, rales, crackles, chest moves symmetrically ABD:bowel sounds normal, soft, non-tender, no guarding, rebound, rigidity, no masses noted, no hepatosplenomegaly MSCL: Non-tender, no muscle atrophy, muscles strength 5/5 upper and lower extremities, full range of motion, normal gait NEURO:CN 2-12 intact, sensation normal. Initial Vital Signs Initial Vital Signs: Vital Signs Temperature 98.0 F 01/25/25 15:56 Pulse Rate 82 01/25/25 15:56 Respiratory Rate 16 01/25/25 15:56 Blood Pressure 142/96 H 01/25/25 15:56 Pulse Oximetry 94 01/25/25 15:56 Oxygen Delivery Method Room Air 01/25/25 15:56 Course Orders Ordered: Discontinued Medications Glucagon (Glucagon,Human Recombinant 1 Mg/Ml Vial) 1 mg IV NOW ONE Stop: 01/25/25 16:07 Last Admin: 01/25/25 16:19 Dose: 1 mg Documented By: JOE Lactated Ringer's (Lactated Ringers) 1,000 mls @ 42 mls/hr IV CONT ANTHONY Last Infusion: 01/25/25 17:54 Dose: Infused Documented By: Admin: 01/25/25 17:19 Dose: 42 mls/hr Documented By: PADMINI Vital Signs Vital signs: Vital Signs - 8 hr 01/25/25 15:56 Temperature 98.0 F Pulse Rate 82 Respiratory Rate 16 Blood Pressure 142/96 H Pulse Oximetry 94 Oxygen Delivery Method Room Air MDM - Skin/Abscess/Foreign Bdy MDM Narrative Medical decision making narrative: Patient with symptoms consistent with prior food bolus, patient had glucagon with warm soda at same time. Patient failed. Spoke with Dr. Douglas at 1640, he will come and evaluate the patient plan for OR this evening. Dr. Douglas. Discharge Plan Departure Patient Disposition: Admitted to Surgery Clinical Impression: Food impaction of esophagus Qualifiers: Encounter type: initial encounter Qualified Code(s): T18.128A - Food in esophagus causing other injury, initial encounter Admit Date/Time: 01/25/25 16:58 Admit Provider: Demetrius Douglas
[2025-01-25] MEDS: GLUCAGON,HUMAN RECOMBINANT 1 MG/ML VIAL IV (16:19)
--- NOTE | 2025-01-25 16:59 | P.HP_ITS ---
History of Present Illness History of Present Illness Date Patient Seen: 01/25/25 Time Patient Seen: 16:59 Chief complaint: Food Lodged in Throat Narrative: Anushka is a 69-year-old woman who was eating steak at lunchtime today and it became lodged in her esophagus. It has not improved. She had this happen once before many years ago and went to [place] for an EGD in esophageal food bolus disimpaction. She then had esophageal dilation performed at a later date. She often gets the sensation that food sticks in her esophagus but it usually passes. She is not on any blood thinners. [facility] Medical History Ganglion cyst of both hands Tobacco use disorder, mild, in early remission History of COVID-19 (~2020) Esophageal dilatation Stress incontinence Arguello's cyst of knee Left knee pain Restrictive airway disease Mixed hyperlipidemia COPD with exacerbation COPD (chronic obstructive pulmonary disease) Bilateral wheezing Breath shortness GERD (gastroesophageal reflux disease) Urinary incontinence Seizure (1979) Hypertension Restless leg syndrome Depression (1998) Surgical History Hx of colonoscopy Family History Father Heart disease Essential hypertension Hyperlipidemia Mother Alzheimer disease Social History household members: spouse Smoking Status: Former smoker alcohol intake: current Meds Home Medications and Allergies Home Medications ?Medication ?Instructions ?Recorded ?Confirmed ?Type albuterol sulfate 90 mcg/actuation 2 puff inhalation Q 6H PRN 02/08/23 01/25/25 Rx aerosol inhaler (Ventolin HFA) shortness of breath or wheezing #6.7 grams fluticasone 250 mcg-salmeterol 50 1 inh inhalation BID #180 ea 06/11/23 01/25/25 Rx mcg/dose blistr powdr for inhalation (Advair Diskus) Disabled Parking Permit See Rx Instructions .Route 0 10/08/23 05/14/24 Rx .COMPLEX #1 unit phenytoin sodium extended 100 mg 100 mg PO TID #270 ca ps 08/21/24 01/25/25 Rx capsule citalopram 40 mg tablet 80 mg (2 x 40 mg) PO QPM for 10/01/24 01/25/25 Rx depressive disorder #180 tabs olmesartan 20 mg tablet 20 mg PO DAILY #90 tabs 11/0601/25/25 Rx rosuvastatin 20 mg tablet See Rx Instructions .Route 0 12/26/24 01/25/25 Rx .COMPLEX #90 tabs Allergies Allergy/AdvReac Type Severity Reaction Status Date / Time lisinopril AdvReac Intermediate Cough Verified 01/25/25 15:56 Exam Vital Signs (past 8 hours): - 01/25/25 15:56 Temperature 98.0 F Pulse Rate 82 Respiratory Rate 16 Blood Pressure 142/96 H Pulse Oximetry 94 Oxygen Delivery Method Room Air Oxygen Delivery Method Room Air Const General: No acute distress Assessment & Plan Assessment and plan (1) Food impaction of esophagus: Qualifiers: Encounter type: initial encounter Qualified Code(s): T18.128A - Food in esophagus causing other injury, initial encounter; W44.F3XA - Food entering into or through a natural orifice, initial encounter Status: Acute Plan I recommended esophagogastroduodenoscopy for an esophageal food disimpaction. She will need to be on a liquid diet for the next 48 hours after the procedure. I advised her to avoid eating any type of land animal meat Time-Based Coding :: [TOTAL MINUTES] spent with patient and on the chart (including review of chart, obtaining history, exam, reviewing outside data, placing orders, documenting exam and treatment plan, and counseling patient) on [DATE]. PROFEE Maintenance Pipefitter Document charge(s): No
[2025-01-25 17:14] VITALS: BP 153/74; PULSE 75; RESP 16; TEMP 36.2; O2SAT 97
[2025-01-25] MEDS: LACTATED RINGERS 1,000 ML 42 ML IV (17:19)
--- NOTE | 2025-01-25 17:27 | PC.NURSE ---
Jennie Alonzo from OR came and got the patient. pt left in NAD
--- NOTE | 2025-01-25 17:43 | PM.OP.EGD ---
Operative Date/Time/Diagnoses Date of procedure: 01/25/25 Time of procedure: 17:43 Pre-op diagnosis: Esophageal food impaction Post-op diagnosis: same Procedure & Clinicians Study performed: Esophagogastroduodenoscopy and disimpaction of food bolus Same procedure(s) as scheduled: Yes Surgeon: Demetrius Douglas Anesthesia Type: General Procedure Notes Procedure in detail: Surgeon: Demetrius Douglas MD Anesthesia: General endotracheal anesthesia by Edilma Joel CRNA A timeout was performed. The patient was positioned in the supine position. General endotracheal anesthesia was administered. The endoscope was inserted through the bite block and passed into the distal esophagus where the food impaction was visualized. The food impaction was removed using the Jono grasping forceps. The impacted food bolus was rather large measuring 3-4 cm in length. Once the food impaction was cleared the scope was inserted into the duodenum. The duodenal mucosa appeared normal. The scope was withdrawn into the duodenal bulb and no abnormalities were seen. The scope was withdrawn into the stomach. No abnormalities were seen in the stomach. The scope was retroflexed and no hiatal hernia was seen. The scope was withdrawn into the esophagus and no abnormalities were noted other than some edema where the impaction has been. The scope was withdrawn. The patient was awakened and brought to recovery. Sedation time: See the anesthesia record Findings: Distal esophageal food impaction Post-procedure Disposition: PACU
[2025-01-25 17:50] VITALS: BP 141/62; PULSE 86; RESP 16; TEMP 36.2; O2SAT 96
[2025-01-25 17:55] VITALS: BP 152/67; PULSE 89; RESP 16; O2SAT 96
[2025-01-25 17:57] VITALS: BP 141/65; PULSE 81; RESP 16; O2SAT 96
== END 2025-01-25 18:08 | disposition home or self-care (01) ==
LOC: ED 16:54 → AC 16:59
PROVIDERS: Admitting Provider Surgery; Emergency Provider Emergency Medicine; PCP Family Medicine; Referring Provider Emergency Medicine; Visit Provider Surgery
PROC: 0DJ08ZZ Inspection of Upper Intestinal Tract, Via Natural or Artificial Opening Endoscopic (ICD-10-PCS; CPT 43247; principal; 2025-01-25 17:00)
DX: T18.128A Food in esophagus causing other injury, initial encounter (principal); W44.F3XA Food entering into or through a natural orifice, initial encounter; I10 Essential (primary) hypertension; E78.5 Hyperlipidemia, unspecified; G40.909 Epilepsy, unspecified, not intractable, without status epilepticus; Z87.891 Personal history of nicotine dependence
CPT/HCPCS: 43247; 36415; 96374; 99284; G0378; J0330; J1100; J1610; J2405; J2704